=== PATIENT | female | born 1975 | race Caucasian/White ===

== ENCOUNTER 2018-01-28 11:14 | Emergency (ER) | payer OTHER ==
[2018-01-28 11:19] VITALS: BP 146/82; PULSE 75; RESP 18; TEMP 98.5
--- NOTE | 2018-01-28 11:37 | ED ---
General Adult HPI - General Chief complaint: Extremity Injury, Upper Stated complaint: Hand Swelling Time Seen by Provider: 01/28/18 11:25 Source: patient, RN notes reviewed Mode of arrival: ambulatory Limitations: no limitations - History of Present Illness Initial comments: Patient is a pleasant 42-year-old female presenting to the emergency Department with right hand discomfort and swelling. Patient did have some mild symptoms last night however symptoms are much worse this morning. Discomfort increases with movement. Discomfort is mostly over the metacarpal for the ring finger. Patient has noticed swelling. No discoloration. Discomfort hurts with both flexion and extension of the fingers: 3rd and fourth of mostly the fourth. No fever. No direct trauma. Patient does admit to doing some yard work yesterday. No history of similar symptoms previous. No other area of involvement. - Related Data Home Medications Medication Instructions Recorded Confirmed Lisinopril [Zestril] 10 mg PO DAILY 01/09/14 01/09/14 Metoprolol Succinate [Toprol XL] 25 mg PO DAILY 01/09/14 01/09/14 Previous Rx's Medication Instructions Recorded Ibuprofen [Motrin] 600 mg PO Q6HR PRN #20 tab 02/24/17 Ibuprofen [Motrin] 600 mg PO Q6HR PRN #20 tab 01/28/18 predniSONE 20 mg PO BID #8 tab 01/28/18 Allergies Allergy/AdvReac Type Severity Reaction Status Date / Time No Known Allergies Allergy Verified 01/28/18 11:19 Review of Systems ROS Statement: Those systems with pertinent positive or pertinent negative responses have been documented in the HPI. ROS Other: All systems not noted in ROS Statement are negative. Constitutional: Denies: fever Eyes: Denies: eye pain ENT: Denies: ear pain Respiratory: Denies: cough Cardiovascular: Denies: chest pain Endocrine: Denies: fatigue Gastrointestinal: Denies: abdominal pain Genitourinary: Denies: dysuria Musculoskeletal: Reports: as per HPI. Denies: back pain Skin: Denies: rash Neurological: Denies: weakness Past Medical History Past Medical History: Hypertension History of Any Multi-Drug Resistant Organisms: None Reported Past Surgical History: Cholecystectomy, Tubal Ligation Additional Past Surgical History / Comment(s): cleft lip Past Psychological History: No Psychological Hx Reported Smoking Status: Current every day smoker Past Alcohol Use History: Occasional Past Drug Use History: None Reported General Exam Limitations: no limitations General appearance: alert, in no apparent distress Head exam: Present: atraumatic Neck exam: Present: normal inspection. Absent: tenderness Respiratory exam: Present: normal lung sounds bilaterally Cardiovascular Exam: Present: regular rate, normal rhythm Expanded Peripheral pulses: 2+: Radial (R) GI/Abdominal exam: Present: soft. Absent: tenderness Extremities exam: Present: other (Right dorsal hand with tenderness and swelling of the fourth metacarpal region and minimally of the third metacarpal region. Full range of motion with discomfort. Cap refill less than 2 seconds.) Neurological exam: Present: alert. Absent: motor sensory deficit Psychiatric exam: Present: normal affect, normal mood Skin exam: Present: normal color. Absent: rash Course Vital Signs 01/28/18 11:15 Temperature 98.5 F Pulse Rate 75 Respiratory 18 Rate Blood Pressure 146/82 O2 Sat by Pulse 100 Oximetry Medical Decision Making - Radiology Data Interpreted by me: X-ray of the right hand shows no acute process Disposition Clinical Impression: Sprain of hand Disposition: HOME SELF-CARE Condition: Stable Instructions: Hand Sprain (ED) Additional Instructions: Please follow-up with primary care physician or orthopedics this week. Continue Motrin. Return for fever, increased pain, increased swelling, redness , worsening symptoms or other concerns. Prescriptions: Ibuprofen [Motrin] 600 mg PO Q6HR PRN #20 tab PRN Reason: Pain predniSONE 20 mg PO BID #8 tab Is patient prescribed a controlled substance at d/c from ED?: No Referrals: Terrence Ledesma MD [Primary Care Provider] - 1-2 days Stanford Macias MD [Medical Doctor] - 1-2 days Time of Disposition: 11:56
[2018-01-28] MEDS ORDERED: IBUPROFEN 600 MG STARTER PACK 4 TAB BTL PO STA (11:54)
--- NOTE | 2018-01-28 11:58 | XR ---
EXAMINATION TYPE: XR hand complete RT , 3 VIEWS DATE OF EXAM ORDERED: 01/28/2018 HISTORY: Pain. COMPARISON: None. FINDINGS: No fracture, dislocation or other bony lesion is identified. IMPRESSION: NO ACUTE OSSEOUS LESION.
== END 2018-01-28 12:03 | disposition home or self-care (01) ==
LOC: EC 11:14
DX: S63.91XA Sprain of unspecified part of right wrist and hand, initial encounter (principal); I10 Essential (primary) hypertension; F17.200 Nicotine dependence, unspecified, uncomplicated; Z79.899 Other long term (current) drug therapy; X50.9XXA Other and unspecified overexertion or strenuous movements or postures, initial encounter
CPT/HCPCS: 99283

== ENCOUNTER 2019-06-07 10:57 | Emergency (ER) | payer BC, OTHER ==
[2019-06-07] MEDS ORDERED: SODIUM CHLORIDE 0.9% 1,000 ML IV STA (11:14)
[2019-06-07] MEDS ORDERED: ASPIRIN 81 MG PO STA (11:14)
--- NOTE | 2019-06-07 11:24 | ED ---
Chest Pain HPI - General Chief Complaint: Chest Pain Stated Complaint: Syncope Time Seen by Provider: 06/07/19 11:01 Source: EMS Mode of arrival: EMS Limitations: no limitations - History of Present Illness Initial Comments: Patient is a 44-year-old female presenting to the emergency department via EMS after having an episode of chest tightness at work today. Patient states she works at [employer] and was moving and lifting 40-50 pound boxes which she does on a daily basis when she started having chest pressure, pain and become short of breath as well as diaphoretic. Patient states the episode lasted a couple minutes and they called EMS. Patient states she is feeling slightly improvement now but is still feeling tightness. She no longer feels short of breath. She denies nausea, vomiting, fever. She states she has not been sick. She felt normal this morning and did have a breakfast. She does take hypertension medications, no other pertinent past medical history. She denies recent travel. She has no other complaints at this time. Patient received 325 mg aspirin as well as 1 nitro in the ambulance prior to arrival. Upon arrival to the ER her vitals are normal. - Related Data Home Medications Medication Instructions Recorded Confirmed Lisinopril-Hctz 20-12.5 mg 1 tab PO DAILY 06/07/19 06/07/19 [Zestoretic 20-12.5] Metoprolol Succinate [Toprol XL] 50 mg PO DAILY 06/07/19 06/07/19 Pamprin 2 tab PO DAILY PRN 06/07/19 06/07/19 Allergies Allergy/AdvReac Type Severity Reaction Status Date / Time No Known Allergies Allergy Verified 06/07/19 11:41 Review of Systems ROS Statement: Those systems with pertinent positive or pertinent negative responses have been documented in the HPI. ROS Other: All systems not noted in ROS Statement are negative. EKG Findings - EKG Comments: EKG Findings:: Ventricular rate 59, FL interval 194, QTC 427. Sinus bradycardia with sinus arrhythmia. No acute ST segment changes. Past Medical History Past Medical History: Hypertension History of Any Multi-Drug Resistant Organisms: None Reported Past Surgical History: Cholecystectomy, Tubal Ligation Additional Past Surgical History / Comment(s): cleft lip Past Psychological History: No Psychological Hx Reported Smoking Status: Never smoker Past Alcohol Use History: Occasional Past Drug Use History: None Reported General Exam - General Exam Comments Initial Comments: GENERAL: Well-appearing, well-nourished and in no acute distress. HEAD: Atraumatic, normocephalic. EYES: Pupils equal round and reactive to light, extraocular movements intact, sclera anicteric, conjunctiva are normal. ENT: TMs normal, nares patent, oropharynx clear without exudates. Moist mucous membranes. NECK: Normal range of motion, supple without lymphadenopathy or JVD. LUNGS: Breath sounds clear to auscultation bilaterally and equal. No wheezes rales or rhonchi. HEART: Regular rate and rhythm without murmurs, rubs or gallops. Mild tenderness with palpation of the upper right chest and upper left chest. ABDOMEN: Soft, nontender, normoactive bowel sounds. No guarding, no rebound. No masses appreciated. : Deferred EXTREMITIES: Normal range of motion, no pitting or edema. No clubbing or cyanosis. NEUROLOGICAL: Cranial nerves II through XII grossly intact. Normal speech, normal gait. PSYCH: Normal mood, normal affect. SKIN: Warm, Dry, normal turgor, no rashes or lesions noted. Limitations: no limitations Course Vital Signs 06/07/19 06/07/19 06/07/19 10:58 11:02 11:19 Temperature 97.5 F L Pulse Rate 67 61 Pulse Rate [ 67 Communication Spec ] Respiratory 18 16 Rate Blood Pressure 141/83 141/83 O2 Sat by Pulse 97 99 Oximetry 06/07/19 06/07/19 06/07/19 11:30 12:00 13:13 Temperature 98.0 F Pulse Rate 58 L 58 L 67 Pulse Rate [ Communication Spec ] Respiratory 17 15 18 Rate Blood Pressure 118/86 124/73 141/87 O2 Sat by Pulse 97 98 98 Oximetry Chest Pain [facility] Patient is a 44-year-old female presenting with chest pain after moving large boxes at work. She was diaphoretic and short of breath as well. Her vitals upon arrival are stable. She did receive aspirin and 1 nitro prior to arrival and EMS. EKG showed no ischemic process. Lab work shows no acute abnormal ities, troponin was normal. UA is normal. Chest x-ray shows no acute abnormalities. Discussed these findings with the patient. We discussed that given her acute onset of chest pain with activity and recommended being admitted for observation and cardiac consult as well as serial troponins. Patient did not want to be admitted and wants to leave. I discussed the consequences of leaving AMA including . Patient still wanting to leave. AMA form was signed. Case discussed with Dr. Bond. Disposition Clinical Impression: Chest pain Disposition: Left Against Medical Advice Condition: Stable Additional Instructions: Please return to the Emergency Department if symptoms worsen or any other concerns. Strongly advised to follow-up with PCP [facility]. Is patient prescribed a controlled substance at d/c from ED?: No Referrals: Terrence Ledesma MD [Primary Care Provider] - 1-2 days
[2019-06-07 11:27] LABS: Basophils # (A) 0.1 k/uL (0-0.2); Basophils % (A) 1 %; Eosinophils # (A) 0.2 k/uL (0-0.7); Eosinophils % (A) 3 %; HCT 39.6 % (34.0-46.0); HGB 13.4 gm/dL (11.4-16.0); Lymphocytes # (A) 2.5 k/uL (1.0-4.8); Lymphocytes % (A) 37 %; MCH 28.3 pg (25.0-35.0); MCHC 33.9 g/dL (31.0-37.0); MCV 83.7 fL (80.0-100.0); Mean Platelet Volume 9.5; Monocytes # (A) 0.3 k/uL (0-1.0); Monocytes % (A) 4 %; Neutrophils # (A) 3.7 k/uL (1.3-7.7); Neutrophils % (A) 54 %; Platelet Count 237 k/uL (150-450); RBC 4.73 m/uL (3.80-5.40); RDW 12.8 % (11.5-15.5); WBC 6.7 k/uL (3.8-10.6)
[2019-06-07 11:38] LABS: ALT 17 U/L (4-34); AST 21 U/L (14-36); African American GFR (CKD) >90 (>60 ml/min/1.73 sqM); Albumin 3.6 g/dL (3.5-5.0); Alkaline Phosphatase 65 U/L (38-126); Anion Gap 8 mmol/L; Blood Urea Nitrogen 15 mg/dL (7-17); Calcium 8.9 mg/dL (8.4-10.2); Carbon Dioxide 24 mmol/L (22-30); Chloride 106 mmol/L (98-107); Glucose 88 mg/dL (74-99); INR 0.9 (<1.2); Magnesium 1.8 mg/dL (1.6-2.3); Non-African American GFR(CKD) 89 (>60 ml/min/1.73 sqM); Partial Thromboplastin Time 23.3 sec (22.0-30.0); Potassium 3.7 mmol/L (3.5-5.1); Prothrombin Time 9.7 sec (9.0-12.0); Sodium 138 mmol/L (137-145); Total Bilirubin 0.4 mg/dL (0.2-1.3); Total Protein 6.6 g/dL (6.3-8.2)
--- NOTE | 2019-06-07 11:44 | XR ---
EXAMINATION TYPE: XR chest 2V DATE OF EXAM: 06/07/2019 COMPARISON: Prior chest x-ray 07/17/2011 HISTORY: Chest pain TECHNIQUE: Frontal and lateral views of the chest are obtained. FINDINGS: There are overlying cardiac leads. Patient is rotated. Surgical clips present right upper q uadrant. There is no focal air space opacity, pleural effusion, or pneumothorax seen. The cardiac si lhouette size is within normal limits. The osseous structures are intact. IMPRESSION: No acute cardiopulmonary process.
[2019-06-07 12:19] LABS: Appearance,Urine Clear (Clear); Bacteria,Urine Rare /hpf; Bilirubin,Urine Negative (Negative); Blood,Urine Moderate (Negative); Color,Urine Light Yellow; Glucose,Urine (UA) Negative (Negative); Ketones,Urine Negative (Negative); Leukocyte Esterase,Urine Negative (Negative); Mucus,Urine Rare /hpf; Nitrite,Urine Negative (Negative); Protein,Urine Negative (Negative); RBC,Urine 36 /hpf (0-5); Specific Gravity,Urine 1.017 (1.001-1.035); Squamous Epithelial Cell,Urine 1 /hpf (0-4); Urobilinogen,Urine <2.0 mg/dL (<2.0); WBC,Urine 4 /hpf (0-5)
[2019-06-07 13:14] VITALS: BP 141/87; PULSE 67; RESP 18; TEMP 98
== END 2019-06-07 13:13 | disposition left against medical advice (07) ==
LOC: EC 10:57
DX: R07.89 Other chest pain (principal); R61 Generalized hyperhidrosis; R06.02 Shortness of breath; I10 Essential (primary) hypertension; Z79.899 Other long term (current) drug therapy; Z53.20 Procedure and treatment not carried out because of patient's decision for unspecified reasons
CPT/HCPCS: 36415; 71046; 80053; 81001; 83735; 84484; 85025; 85610; 85730; 93005; 96360; 99285

== ENCOUNTER 2021-04-22 13:54 | Emergency (ER) | payer BC, OTHER ==
[2021-04-22 14:55] VITALS: RESP 18; TEMP 98
[2021-04-22] MEDS ORDERED: KETOROLAC 15 MG/ML 1 ML VIAL IM STA (16:17)
[2021-04-22] MEDS ORDERED: ACETAMINOPHEN TAB 500 MG TAB PO STA (16:17)
[2021-04-22] MEDS ORDERED: LIDOCAINE 5% PATCH TOPICAL STA (18:26)
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
[2021-04-22 18:46] VITALS: BP 169/94; PULSE 81
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
== END 2021-04-22 19:13 | disposition home or self-care (01) ==
LOC: EC 13:54
DX: S39.012A Strain of muscle, fascia and tendon of lower back, initial encounter (principal); I10 Essential (primary) hypertension; Z90.49 Acquired absence of other specified parts of digestive tract; Z98.51 Tubal ligation status; V43.52XA Car driver injured in collision with other type car in traffic accident, initial encounter; Y92.410 Unspecified street and highway as the place of occurrence of the external cause
CPT/HCPCS: 99284; 96372; 72170; 71046; 72128; 72125; 72131; J1885

== ENCOUNTER 2023-09-15 19:44 | Emergency (ER) | payer BC ==
[2023-09-15 19:56] VITALS: RESP 18
--- NOTE | 2023-09-15 21:38 | ED ---
Extremity Problem HPI - General Chief complaint: Extremity Problem,Nontraumatic Stated complaint: R Ankle Injury Time Seen by Provider: 09/15/23 20:52 Source: patient, RN notes reviewed, old records reviewed Mode of arrival: wheelchair Limitations: no limitations - History of Present Illness Initial comments: This is a 48-year-old female to the ER for evaluation of severe ankle pain and ankle pain with found ankle sprain. No significant traumatic injuries noted otherwise. Patient is having severe pain and swelling to the ankle difficult to bear weight but is able to bear weight MD Complaint: extremity pain, extremity swelling, joint swelling, joint pain -: hour(s) Location: right, lower extremity History of Same: Yes -: Yes arthralgia Radiation: proximal Severity scale (1-10): 6 Quality: stabbing, aching Consistency: constant Improves with: nothing Worsens with: weight bearing, walking Associated Symptoms: denies other symptoms - Related Data Home Medications Medication Instructions Recorded Confirmed Lisinopril-Hctz 20-12.5 mg 1 tab PO DAILY 06/07/19 06/07/19 [Zestoretic 20-12.5] Metoprolol Succinate [Toprol XL] 50 mg PO DAILY 06/07/19 06/07/19 Pamprin 2 tab PO DAILY PRN 06/07/19 06/07/19 Previous Rx's Medication Instructions Recorded Lidocaine 5% Patch [Lidoderm 5% 1 patch TOPICAL DAILY PRN 7 Days 04/22/21 Patch] #7 patch methocarbamoL [Robaxin-750] 750 mg PO BID 7 Days #14 tablet 04/22/21 Allergies Allergy/AdvReac Type Severity Reaction Status Date / Time No Known Allergies Allergy Verified 04/22/21 14:55 Review of Systems ROS Statement: Those systems with pertinent positive or pertinent negative responses have been documented in the HPI. ROS Other: All systems not noted in ROS Statement are negative. Past Medical History Past Medical History: Hypertension History of Any Multi-Drug Resistant Organisms: None Reported Past Surgical History: Cholecystectomy, Tubal Ligation Additional Past Surgical History / Comment(s): cleft lip Past Psychological History: No Psychological Hx Reported Smoking Status: Never smoker Past Alcohol Use History: Occasional Past Drug Use History: None Reported General Exam Limitations: no limitations General appearance: alert, in no apparent distress Head exam: Present: atraumatic, normocephalic, normal inspection Eye exam: Present: normal appearance, PERRL, EOMI. Absent: scleral icterus, conjunctival injection, periorbital swelling ENT exam: Present: normal exam, mucous membranes moist Neck exam: Present: normal inspection. Absent: tenderness, meningismus, lymphadenopathy Respiratory exam: Present: normal lung sounds bilaterally. Absent: respiratory distress, wheezes, rales, rhonchi, stridor Cardiovascular Exam: Present: regular rate, normal rhythm, normal heart sounds. Absent: systolic murmur, diastolic murmur, rubs, gallop, clicks GI/Abdominal exam: Present: soft, normal bowel sounds. Absent: distended, tenderness, guarding, rebound, rigid Extremities exam: Present: normal inspection, full ROM, normal capillary refill. Absent: tenderness, pedal edema, joint swelling, calf tenderness Back exam: Present: normal inspection Neurological exam: Present: alert, oriented X3, CN II-XII intact Psychiatric exam: Present: normal affect, normal mood Skin exam: Present: warm, dry, intact, normal color. Absent: rash Course Vital Signs 09/15/23 09/15/23 19:46 21:55 Temperature 98.4 F 98.1 F Pulse Rate 78 75 Respiratory 18 18 Rate Blood Pressure 152/98 132/80 O2 Sat by Pulse 97 98 Oximetry - Reevaluation(s) Reevaluation #1: Medical records reviewed Reevaluation #2: Patient symptoms improved Reevaluation #3: Patient informed of results questions answered Reevaluation #4: Was pt. sent in by a medical professional or institution (, PA, MORNING SHOW PRODUCER, urgent care, hospital, or correction...) When possible be specific @ -no Did you speak to anyone other than the patient for history (EMS, parent, family, police, friend...)? What history was obtained from this source @ -no Did you review nursing and triage notes (agree or disagree)? Why? @ -agree Are old charts reviewed (outside hosp., previous admission, EMS record, old EKG, old radiological studies, urgent care reports/EKG's, correction records)? Report findings @ -yes Differential Diagnosis (chest pain, altered mental status, abdominal pain women, abdominal pain men, vaginal bleeding, weakness, fever, dyspnea, syncope, headache, dizziness, GI bleed, back pain, seizure, CVA, palpatations, mental health, musculoskeletal)? @ -prior EKG interpreted by me (3pts min.). @ -no X-rays interpreted by me (1pt min.). @ -yes negative for acute disease CT interpreted by me (1pt min.). @ -no U/S interpreted by me (1pt. min.). @ -no What testing was considered but not performed or refused? (CT, X-rays, U/S, labs)? Why? @ -none What meds were considered but not given or refused? Why? @ -none Did you discuss the management of the patient with other professionals (professionals i.e. , PA, MORNING SHOW PRODUCER, lab, RT, psych nurse, social work supervisor, assembler leather goods, teacher, credit administration officer, case management manager)? Give summary @ -no Was smoking cessation discussed for >3mins.? @ -no Were there social determinants of health that impacted care today? How? (Homelessness, low income, unemployed, alcoholism, drug addiction, transportation, low edu. Level, literacy, decrease access to med. care, [place] [facility], rehab)? @ -none Was there de-escalation of care discussed even if they declined (Discuss DNR or withdrawal of care, Hospice)? DNR status @ -no What co-morbidities impacted this encounter? (DM, HTN, Smoking, COPD, CAD, Cancer, CVA, ARF, Chemo, Hep., AIDS, mental health diagnosis, sleep apnea, morbid obesity)? @ -none Was patient admitted / discharged? Hospital course, mention meds given and route, prescriptions, significant lab abnormalities, going to OR and other pertinent info. @ - 48 female to the ER for evaluation of right ankle pain positive for right ankle sprain no fracture patient will be discharged home Discharge Was critical care preformed (if so, how long)? @ -no Undiagnosed new problem with uncertain prognosis? @ -no Drug Therapy requiring intensive monitoring for toxicity (Heparin, Nitro, Insulin, Cardizem)? @ -no Were any procedures done? @ -no Diagnosis/symptom? @ -Ankle Sprain Acute, or Chronic, or Acute on Chronic? @ -Acute Uncomplicated (without systemic symptoms) or Complicated (systemic symptoms)? @ -Complicated Side effects of treatment? @ -no Exacerbation, Progression, or Severe Exacerbation? @ -exacerbation Poses a threat to life or bodily function? How? (Chest pain, [place], [place], pneumonia, PE, COPD, DKA, ARF, appy, cholecystitis, CVA, Diverticulitis, Homicidal, Suicidal, threat to staff... and all critical care pts) @ -no Medical Decision Making - Medical Decision Making 48 female to the ER for evaluation of right ankle pain positive for right ankle sprain no fracture patient will be discharged home - Radiology Data Radiology results: report reviewed (X-ray ankle is negative for traumatic injury), image reviewed Disposition Clinical Impression: Right ankle sprain Disposition: HOME SELF-CARE Condition: Good Instructions (If sedation given, give patient instructions): Ankle Sprain (ED) Is patient prescribed a controlled substance at d/c from ED?: No Referrals: Terrence Ledesma [Primary Care Provider] - 1-2 days Time of Disposition: 21:30
[2023-09-15 22:27] VITALS: BP 132/80; PULSE 75; TEMP 98.1
--- NOTE | 2023-09-15 23:24 | XR ---
EXAMINATION TYPE: XR ankle complete RT DATE OF EXAM: 09/15/2023 COMPARISON: 02/24/2017 HISTORY: Pain TECHNIQUE: Three-view right ankle FINDINGS: Ankle mortise is intact. Soft tissues are normal. No acute fracture or dislocation is evide nt. Plantar and Achilles tendon calcaneal heel spurs are present. There may be some interval development of cysts at the inferior lateral malleolus not present previou sly. Follow-up is recommended. Three-phase bone scan can be performed if there is clinical concern fo r osteomyelitis. Follow up exams can be performed 7-10 days from acute trauma for continued pain IMPRESSION: 1. No acute fractures evident. 2. Interval development of lucencies at the inferior lateral malleolus. Correlate for degenerative ch steve and infection. Follow-up is recommended.
== END 2023-09-15 22:03 | disposition home or self-care (01) ==
LOC: EC 19:44
DX: S93.401A Sprain of unspecified ligament of right ankle, initial encounter (principal); X58.XXXA Exposure to other specified factors, initial encounter
CPT/HCPCS: 99283

== ENCOUNTER 2023-12-22 12:58 | Emergency (ER) | payer BC ==
[2023-12-22 13:03] VITALS: PULSE 64
--- NOTE | 2023-12-22 13:22 | ED ---
Extremity Problem HPI - General Chief complaint: Extremity Problem,Nontraumatic Stated complaint: Swollen left leg Time Seen by Provider: 12/22/23 13:19 Source: patient, RN notes reviewed Mode of arrival: ambulatory Limitations: no limitations - History of Present Illness Initial comments: 48-year-old female presenting for left leg swelling x 1 day. Patient states she was at work yesterday when she began to feel a pain in her left calf radiating into her left hamstring. Pain is worse with weightbearing and relieved with rest and elevation. Patient states she is on her feet all day as she works at [employer]. States when she got home from work last night she felt as though her entire left leg was swollen. Patient is now having left popliteal pain and pain with knee flexion. Denies known trauma or injury. Denies history of blood clot. Denies recent travel or surgeries. Denies hormone replacement therapy. Denies blood thinners. - Related Data Home Medications Medication Instructions Recorded Confirmed Lisinopril-Hctz 20-12.5 mg 1 tab PO DAILY 06/07/19 12/22/23 [Zestoretic 20-12.5] Metoprolol Succinate [Toprol XL] 50 mg PO DAILY 06/07/19 12/22/23 Atorvastatin [Lipitor] 20 mg PO DAILY 12/22/23 12/22/23 Escitalopram [Lexapro] 10 mg PO DAILY 12/22/23 12/22/23 Allergies Allergy/AdvReac Type Severity Reaction Status Date / Time No Known Allergies Allergy Verified 12/22/23 14:35 Review of Systems ROS Statement: Those systems with pertinent positive or pertinent negative responses have been documented in the HPI. ROS Other: All systems not noted in ROS Statement are negative. Past Medical History Past Medical History: Hypertension History of Any Multi-Drug Resistant Organisms: None Reported Past Surgical History: Cholecystectomy, Tubal Ligation Additional Past Surgical History / Comment(s): cleft lip Past Psychological History: No Psychological Hx Reported Smoking Status: Never smoker Past Alcohol Use History: Occasional Past Drug Use History: None Reported General Exam Limitations: no limitations General appearance: alert, in no apparent distress Head exam: Present: atraumatic, normocephalic, normal inspection Left Upper Leg exam: Present: normal inspection, full ROM. Absent: tenderness, swelling Knee exam: Present: normal inspection (No erythema or edema bilaterally. Full sensation and DP pulses bilaterally), full ROM (Limited knee flexion due to pain.), tenderness (Newness in left popliteal space). Absent: swelling Lower Leg exam: Present: normal inspection, full ROM. Absent: tenderness, swelling, erythema, palpable cord, Homans' sign Ankle exam: Present: normal inspection, full ROM. Absent: tenderness, swelling Foot/Toe exam: Present: normal inspection, full ROM. Absent: tenderness, swelling Neurovascular tendon exam: Present: no vascular compromise. Absent: pulse deficit, abnormal cap refill, sensory deficit Neurological exam: Present: alert, oriented X3 Psychiatric exam: Present: normal affect, normal mood Course Vital Signs 12/22/23 12:59 Temperature 97.8 F Pulse Rate 64 Respiratory 18 Rate Blood Pressure 157/96 O2 Sat by Pulse 95 Oximetry Medical Decision Making - Medical Decision Making Was pt. sent in by a medical professional or institution (, PA, TALENT BUYER, urgent care, hospital, or [place] [facility]...) When possible be specific @ -No Did you speak to anyone other than the patient for history (EMS, parent, family, police, friend...)? What history was obtained from this source @ -No Did you review nursing and triage notes (agree or disagree)? Why? @ -I reviewed and agree with nursing and triage notes Were old charts reviewed (outside hosp., previous admission, EMS record, old EKG, old radiological studies, urgent care reports/EKG's, [place] [facility] records)? Report findings @ -No old charts were reviewed Differential Diagnosis (chest pain, altered mental status, abdominal pain women, abdominal pain men, vaginal bleeding, weakness, fever, dyspnea, syncope, headache, dizziness, GI bleed, back pain, seizure, CVA, palpatations, mental health, musculoskeletal)? @ -Differential Musculoskeletal Muscular strain, contusion, ligament sprain, fracture, arthritis, septic arthritis, bursitis, cellulitis, muscle spasm, nerve compression, DVT, arterial occlusion, herpes zoster, electrolyte abnormality, tumor.... This is not meant to be in all inclusive list EKG interpreted by me (3pts min.). @ -None X-rays interpreted by me (1pt min.). @ -Left knee x-ray reveals no acute osseous abnormality CT interpreted by me (1pt min.). @ -None done U/S interpreted by me (1pt. min.). @ -Ultrasound of left lower extremity negative for DVT What testing was considered but not performed or refused? (CT, X-rays, U/S, labs)? Why? @ -None What meds were considered but not given or refused? Why? @ -None Did you discuss the management of the patient with other professionals (professionals i.e. , PA, TALENT BUYER, lab, RT, psych nurse, manager social work, assistant plant manager, teacher, electorate officer, case technician)? Give summary @ -No Was smoking cessation discussed for >3mins.? @ -No Was critical care preformed (if so, how long)? @ -No Were there social determinants of health that impacted care today? How? (Homelessness, low income, unemployed, alcoholism, drug addiction, transportation, low edu. Level, literacy, decrease access to med. care, prison, rehab)? @ -No Was there de-escalation of care discussed even if they declined (Discuss DNR or withdrawal of care, Hospice)? DNR status @ -No What co-morbidities impacted this encounter? (DM, HTN, Smoking, COPD, CAD, Cancer, CVA, ARF, Chemo, Hep., AIDS, mental health diagnosis, sleep apnea, morbid obesity)? @ -None Was patient admitted / discharged? Hospital course, mention meds given and route, prescriptions, significant lab abnormalities, going to OR and other pertinent info. @ -Patient was discharged. Patient was seen and evaluated for left leg swelling x 1 day with popliteal pain. Denies injury or trauma. No erythema or edema upon physical examination. Neurovascularly intact, strong DP pulses bilaterally. Ultrasound is negative for DVT. X-ray of left knee is negative for acute process. Discussed negative findings with patient. Discussed diagnosis of left knee strain. Supportive care discussed. Return precautions discussed and patient is agreeable. Case was discussed with my ED attending Dr. Garcia. Patient discharged in stable condition Undiagnosed new problem with uncertain prognosis? @ -No Drug Therapy requiring intensive monitoring for toxicity (Heparin, Nitro, Insulin, Cardizem)? @ -No Were any procedures done? @ -No Diagnosis/symptom? @ -Left knee strain Acute, or Chronic, or Acute on Chronic? @ -Acute Uncomplicated (without systemic symptoms) or Complicated (systemic symptoms)? @ -Uncomplicated Side effects of treatment? @ -No Exacerbation, Progression, or Severe Exacerbation? @ -No Poses a threat to life or bodily function? How? (Chest pain, [place], [place], pneumonia, PE, COPD, DKA, ARF, appy, cholecystitis, CVA, Diverticulitis, Homicidal, Suicidal, threat to staff... and all critical care pts) @ -No Disposition Clinical Impression: Strain of left knee Disposition: HOME SELF-CARE Condition: Stable Instructions (If sedation given, give patient instructions): Muscle Strain (ED) Additional Instructions: Use elevation and ice to affected area. Take ibuprofen or Tylenol as needed for pain. Please return to the Emergency Department if symptoms worsen or any other concerns. Is patient prescribed a controlled substance at d/c from ED?: No Referrals: Terrence Ledesma [Primary Care Provider] - 1-2 days Time of Disposition: 14:50
--- NOTE | 2023-12-22 13:41 | XR ---
EXAMINATION TYPE: XR knee complete LT DATE OF EXAM: 12/22/2023 1:33 PM CLINICAL INDICATION: Female, 48 years old with history of left knee pain; COMPARISON: None. TECHNIQUE: XR knee complete LT; examined in Frontal, lateral and oblique projections. FINDINGS: No evidence of any acute osseous pathology, soft tissue swelling, or joint effusion is no mandeep. Tricompartmental osteophyte formation involving the femoral condyles, tibial plateau and patella . Mild joint space narrowing. A fabella is present. IMPRESSION: 1. No acute osseous pathology. 2. Mild tricompartmental osteoarthritic changes.
--- NOTE | 2023-12-22 14:10 | US ---
EXAMINATION TYPE: US venous doppler duplex LE LT DATE OF EXAM: 12/22/2023 1:19 PM COMPARISON: NONE CLINICAL INDICATION: Female, 48 years old with history of left popliteal pain; lt knee pain SIDE PERFORMED: Left TECHNIQUE: The lower extremity deep venous system is examined utilizing real time linear array sonog deirdre with graded compression, doppler sonography and color-flow sonography. VESSELS IMAGED: Common Femoral Vein Deep Femoral Vein Greater Saphenous Vein * Femoral Vein Popliteal Vein Small Saphenous Vein * Proximal Calf Veins (* superficial vessels) Left Leg: Negative for DVT IMPRESSION: Grayscale, color doppler, spectral doppler imaging performed of the deep veins of the lo wer extremities. There is normal flow, compressibility, vascular waveforms.
[2023-12-22 15:14] VITALS: BP 147/85; RESP 16; TEMP 98
== END 2023-12-22 15:14 | disposition home or self-care (01) ==
LOC: EC 12:58
DX: R22.42 Localized swelling, mass and lump, left lower limb
CPT/HCPCS: 99283

== ENCOUNTER 2024-06-17 09:01 | Emergency (ER) | payer BC ==
[2024-06-17] MEDS: methylPREDNISolone SOD SUCCI 125 MG/2 ML VIAL IV STA (10:12)
[2024-06-17] MEDS: SODIUM CHLORIDE 0.9% 1,000 ML IV STA (10:12)
[2024-06-17 10:27] LABS: Basophils % (A) 1 %; Eosinophils # (A) 0.1 k/uL (0-0.7); Eosinophils % (A) 1 %; HCT 44.9 % (34.0-46.0); HGB 14.6 gm/dL (11.4-16.0); Lymphocytes # (A) 2.4 k/uL (1.0-4.8); Lymphocytes % (A) 48 %; MCH 27.4 pg (25.0-35.0); MCHC 32.4 g/dL (31.0-37.0); MCV 84.6 fL (80.0-100.0); Mean Platelet Volume 9.3; Monocytes # (A) 0.2 k/uL (0-1.0); Monocytes % (A) 5 %; Neutrophils # (A) 2.2 k/uL (1.3-7.7); Neutrophils % (A) 43 %; Platelet Count 189 k/uL (150-450); RBC 5.31 m/uL (3.80-5.40); RDW 13.3 % (11.5-15.5)
[2024-06-17 10:32] LABS: Influenza A Detected (Not Detectd); Influenza B Not Detected (Not Detectd); RSV Not Detected (Not Detectd)
--- NOTE | 2024-06-17 10:56 | XR ---
EXAMINATION TYPE: XR chest 2V DATE OF EXAM: 06/17/2024 10:52 AM COMPARISON: Chest x-ray April 22, 2021 CLINICAL INDICATION: Female, 49 years old with history of difficulty breathing, TECHNIQUE: Frontal and lateral views of the chest are obtained. FINDINGS: There is no focal air space opacity, pleural effusion, or pneumothorax seen. The cardiac silhouette size is stable and upper limits of normal. The osseous structures are intact. IMPRESSION: No acute cardiopulmonary process. [facility], , 06/17/2024 10:54 AM
[2024-06-17 10:58] LABS: ALT 28 U/L (4-34); African American GFR (CKD) >90 (>60 ml/min/1.73 sqM); Anion Gap 7 mmol/L; Blood Urea Nitrogen 14 mg/dL (7-17); Calcium 8.9 mg/dL (8.4-10.2); Carbon Dioxide 28 mmol/L (22-30); Chloride 101 mmol/L (98-107); Glucose 89 mg/dL (74-99); Non-African American GFR(CKD) >90 (>60 ml/min/1.73 sqM); Sodium 136 mmol/L (137-145); Total Bilirubin 0.7 mg/dL (0.2-1.3); Total Protein 6.8 g/dL (6.3-8.2)
[2024-06-17 11:04] LABS: Potassium 4.2 mmol/L (3.5-5.1)
[2024-06-17 11:05] LABS: AST 30 U/L (14-36); Alkaline Phosphatase 57 U/L (38-126); Magnesium 2.1 mg/dL (1.6-2.3)
[2024-06-17 11:26] VITALS: RESP 17
[2024-06-17] MEDS: IPRATROPIUM-ALBUTEROL 3 ML NEB INHALATION STA (11:28)
--- NOTE | 2024-06-17 12:20 | ED ---
General Adult HPI - General Chief complaint: Shortness of Breath Stated complaint: SOB Time Seen by Provider: 06/17/24 09:15 Source: patient, RN notes reviewed, old records reviewed Mode of arrival: ambulatory Limitations: no limitations - History of Present Illness Initial comments: Patient is a 49-year-old female presents emergency department complaining of difficulty catching breath with wheezing. Has a history of tobacco use. Only past medical history is hypertension. Endorses sick contacts at work. 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 Denies abdominal pain, nausea, vomiting, diarrhea. Presents for further evaluation. Currently having 1 week of symptoms. - Related Data Home Medications Medication Instructions Recorded Confirmed Lisinopril-Hctz 20-12.5 mg 1 tab PO DAILY 06/07/19 06/17/24 [Zestoretic 20-12.5] Metoprolol Succinate [Toprol XL] 50 mg PO DAILY 06/07/19 06/17/24 Atorvastatin [Lipitor] 20 mg PO DAILY 12/22/23 06/17/24 Escitalopram [Lexapro] 10 mg PO DAILY 12/22/23 06/17/24 Previous Rx's Medication Instructions Recorded Albuterol Inhaler [Ventolin Hfa 1 - 2 puff INHALATION Q6H PRN #1 06/17/24 Inhaler] each predniSONE [Deltasone] 40 mg PO DAILY 5 Days #10 tab 06/17/24 Allergies Allergy/AdvReac Type Severity Reaction Status Date / Time No Known Allergies Allergy Verified 06/17/24 11:08 Review of Systems ROS Statement: Those systems with pertinent positive or pertinent negative responses have been documented in the HPI. Review of Systems: CONST: Denies fever EYES: Denies blurry vision ENT: Denies nasal congestion C/V: Denies Chest pain RESP: Endorses shortness of breath GI: Denies abdominal pain : Denies dysuria SKIN: Denies rash. MSK: Denies joint pain. NEURO: Denies headache ROS Other: All systems not noted in ROS Statement are negative. Past Medical History Past Medical History: Hypertension History of Any Multi-Drug Resistant Organisms: None Reported Past Surgical History: Cholecystectomy, Tubal Ligation Additional Past Surgical History / Comment(s): cleft lip Past Psychological History: No Psychological Hx Reported Smoking Status: Never smoker Past Alcohol Use History: Occasional Past Drug Use History: None Reported General Exam - General Exam Comments Initial Comments: General: Appears in no acute distress. HEAD: Normal with no signs of head trauma. EYES: PERRLA, EOMI, conjunctiva normal, no discharge. ENT: Hearing grossly intact, normal oropharynx. RESPIRATORY: Bilateral end expiratory wheezing. No significant hypoxia. C/V: Regular rate and rhythm. S1 and S2 auscultated, no edema, peripheral pulses 2+ and intact throughout ABD: Abd is soft, nontender, nondistended EXT: Normal range of motion, no obvious deformity SKIN: No rashes or lesions observed on exposed skin. NEURO: Alert and oriented x 4. Limitations: no limitations Course Vital Signs 06/17/24 06/17/24 06/17/24 09:07 10:23 11:22 Temperature 979.4 F H 97.1 F L Pulse Rate 69 61 Respiratory 16 18 17 Rate Blood Pressure 120/76 149/79 O2 Sat by Pulse 98 99 Oximetry 06/17/24 06/17/24 06/17/24 11:28 11:38 12:49 Temperature 98.1 F Pulse Rate 68 60 73 Respiratory 17 Rate Blood Pressure 134/83 O2 Sat by Pulse 96 Oximetry Medical Decision Making - Medical Decision Making Was pt. sent in by a medical professional or institution (, PA, ADDICTION MEDICINE PHYSICIAN, urgent care, hospital, or skilled nursing...) When possible be specific @ -No Did you speak to anyone other than the patient for history (EMS, parent, family, police, friend...)? What history was obtained from this source @ -No Did you review nursing and triage notes (agree or disagree)? Why? @ -I reviewed and agree with nursing and triage notes Were old charts reviewed (outside hosp., previous admission, EMS record, old EKG, old radiological studies, urgent care reports/EKG's, skilled nursing records)? Report findings @ -No old charts were reviewed Differential Diagnosis (chest pain, altered mental status, abdominal pain women, abdominal pain men, vaginal bleeding, weakness, fever, dyspnea, syncope, headache, dizziness, GI bleed, back pain, seizure, CVA, palpatations, mental health, musculoskeletal)? @ -COVID, flu, RSV, pneumonia, COPD. This list is not all inclusive EKG interpreted by me (3pts min.). @ -As above X-rays interpreted by me (1pt min.). @ -Chest x-ray shows no obvious acute cardiopulmonary process CT interpreted by me (1pt min.). @ -None done U/S interpreted by me (1pt. min.). @ -None done What testing was considered but not performed or refused? (CT, X-rays, U/S, labs)? Why? @ -None What meds were considered but not given or refused? Why? @ -None Did you discuss the management of the patient with other professionals (professionals i.e. , PA, ADDICTION MEDICINE PHYSICIAN, lab, RT, psych nurse, mental health social worker, integration software engineer, teacher, enforcement safety officer, casework supervisor)? Give summary @ -No Was smoking cessation discussed for >3mins.? @ -No Was critical care preformed (if so, how long)? @ -No Were there social determinants of health that impacted care today? How? (Homelessness, low income, unemployed, alcoholism, drug addiction, transportation, low edu. Level, literacy, decrease access to med. care, half-way, rehab)? @ -No Was there de-escalation of care discussed even if they declined (Discuss DNR or withdrawal of care, Hospice)? DNR status @ -No What co-morbidities impacted this encounter? (DM, HTN, Smoking, COPD, CAD, Ca ncer, CVA, ARF, Chemo, Hep., AIDS, mental health diagnosis, sleep apnea, morbid obesity)? @ -None Was patient admitted / discharged? Hospital course, mention meds given and route, prescriptions, significant lab abnormalities, going to OR and other pertinent info. @ -Patient presents with URI symptoms. Former smoker with wheezing. Patient administered IV fluids, IV steroids, breathing treatment. We will obtain infectious workup. Patient was in agreement this plan. Chest x-ray unremarkable. EKG unremarkable. Laboratory studies remarkable for positive influenza A swab. Discussed results with the patient. I believe it is safer to be discharged home. Given a work note. She will be given prednisone and albuterol for home. Patient does not meet criteria for Tamiflu therapy as she has been having symptoms for a week. She was in agreement this plan. I will provide the patient with a prescription for prednisone, albuterol inhaler. I instructed the patient to follow up with their PCP in the next 1-3 days.. I explained that the patient should return to the emergency department i f they experience any worsening symptoms. Strict return precautions were discussed with the patient. The patient expressed understanding of these instructions. I answered all questions that the patient had. The patient was discharged home in good condition with their prescriptions and follow up info rmation. Undiagnosed new problem with uncertain prognosis? @ -No Drug Therapy requiring intensive monitoring for toxicity (Heparin, Nitro, Insulin, Cardizem)? @ -No Were any procedures done? @ -No Diagnosis/symptom? @ -Influenza A infection Acute, or Chronic, or Acute on Chronic? @ -Acute Uncomplicated (without systemic symptoms) or Complicated (systemic symptoms)? @ -Uncomplicated Side effects of treatment? @ -No Exacerbation, Progression, or Severe Exacerbation? @ -No Poses a threat to life or bodily function? How? (Chest pain, [place], CA, pneumonia, PE, COPD, DKA, ARF, appy, cholecystitis, CVA, Diverticulitis, Homicidal, Suicidal, threat to staff... and all critical care pts) @ -Unlikely at this time - Lab Data Result diagrams: 06/17/24 10:12 06/17/24 10:12 Lab Results 06/17/24 06/17/24 06/17/24 Range/Units 09:44 10:12 10:12 WBC 5.0 (3.8-10.6) k/uL RBC 5.31 (3.80-5.40) m/uL Hgb 14.6 (11.4-16.0) gm/dL Hct 44.9 (34.0-46.0) % MCV 84.6 (80.0-100.0) fL MCH 27.4 (25.0-35.0) pg MCHC 32.4 (31.0-37.0) g/dL RDW 13.3 (11.5-15.5) % Plt Count 189 (150-450) k/uL MPV 9.3 Neutrophils % 43 % Lymphocytes % 48 % Monocytes % 5 % Eosinophils % 1 % Basophils % 1 % Neutrophils # 2.2 (1.3-7.7) k/uL Lymphocytes # 2.4 (1.0-4.8) k/uL Monocytes # 0.2 (0-1.0) k/uL Eosinophils # 0.1 (0-0.7) k/uL Basophils # 0.0 (0-0.2) k/uL PT 11.0 (10.0-12.5) sec INR 1.0 (<1.2) APTT 23.0 (22.0-30.0) sec Sodium (137-145) mmol/L Potassium (3.5-5.1) mmol/L Chloride (98-107) mmol/L Carbon Dioxide (22-30) mmol/L Anion Gap mmol/L BUN (7-17) mg/dL Creatinine (0.52-1.04) mg/dL Est GFR (CKD-EPI)AfAm (>60 ml/min/1.73 sqM) Est GFR (CKD-EPI)NonAf (>60 ml/min/1.73 sqM) Glucose (74-99) mg/dL Calcium (8.4-10.2) mg/dL Magnesium (1.6-2.3) mg/dL Total Bilirubin (0.2-1.3) mg/dL AST (14-36) U/L ALT (4-34) U/L Alkaline Phosphatase (38-126) U/L Total Protein (6.3-8.2) g/dL Albumin (3.5-5.0) g/dL Influenza Type A (PCR) Detected A (Not Detectd) Influenza Type B (PCR) Not Detected (Not Detectd) RSV (PCR) Not Detected (Not Detectd) SARS-CoV-2 (PCR) Not Detected (Not Detectd) 06/17/24 Range/Units 10:12 WBC (3.8-10.6) k/uL RBC (3.80-5.40) m/uL Hgb (11.4-16.0) gm/dL Hct (34.0-46.0) % MCV (80.0-100.0) fL MCH (25.0-35.0) pg MCHC (31.0-37.0) g/dL RDW (11.5-15.5) % Plt Count (150-450) k/uL MPV Neutrophils % % Lymphocytes % % Monocytes % % Eosinophils % % Basophils % % Neutrophils # (1.3-7.7) k/uL Lymphocytes # (1.0-4.8) k/uL Monocytes # (0-1.0) k/uL Eosinophils # (0-0.7) k/uL Basophils # (0-0.2) k/uL PT (10.0-12.5) sec INR (<1.2) APTT (22.0-30.0) sec Sodium 136 L (137-145) mmol/L Potassium 4.2 (3.5-5.1) mmol/L Chloride 101 (98-107) mmol/L Carbon Dioxide 28 (22-30) mmol/L Anion Gap 7 mmol/L BUN 14 (7-17) mg/dL Creatinine 0.74 (0.52-1.04) mg/dL Est GFR (CKD-EPI)AfAm >90 (>60 ml/min/1.73 sqM) Est GFR (CKD-EPI)NonAf >90 (>60 ml/min/1.73 sqM) Glucose 89 (74-99) mg/dL Calcium 8.9 (8.4-10.2) mg/dL Magnesium 2.1 (1.6-2.3) mg/dL Total Bilirubin 0.7 (0.2-1.3) mg/dL AST 30 (14-36) U/L ALT 28 (4-34) U/L Alkaline Phosphatase 57 (38-126) U/L Total Protein 6.8 (6.3-8.2) g/dL Albumin 4.0 (3.5-5.0) g/dL Influenza Type A (PCR) (Not Detectd) Influenza Type B (PCR) (Not Detectd) RSV (PCR) (Not Detectd) SARS-CoV-2 (PCR) (Not Detectd) - EKG Data -: EKG Interpreted by Me EKG Comments: 12-lead Electrocardiogram Interpretation Note EKG was reviewed and interpreted by myself. 12-lead ECG performed at 0937 is i nterpreted by me as revealing normal sinus rhythm at a rate of 67 beats per minute. [place] is normal. [place] interval is 199 ms, QRS durations 81 ms, QTc is 417 milliseconds.. There were no ST or T wave abnormalities to suggest myocardial ischemia or injury. R wave progression across the precordium was satisfactory. By my interpretation this EKG is non-diagnostic for acute ischemia. Disposition Clinical Impression: Influenza A Disposition: HOME SELF-CARE Condition: Good Instructions (If sedation given, give patient instructions): Influenza (ED) Prescriptions: predniSONE [Deltasone] 40 mg PO DAILY 5 Days #10 tab Albuterol Inhaler [Ventolin Hfa Inhaler] 1 - 2 puff INHALATION Q6H PRN #1 each PRN Reason: Dyspnea Is patient prescribed a controlled substance at d/c from ED?: No Referrals: Terrence Ledesma [Primary Care Provider] - 1-2 days Time of Disposition: 12:10
[2024-06-17 12:50] VITALS: BP 134/83; PULSE 73; TEMP 98.1
== END 2024-06-17 12:53 | disposition home or self-care (01) ==
LOC: EC 09:01
DX: J10.1 Influenza due to other identified influenza virus with other respiratory manifestations (principal)
CPT/HCPCS: 36415; 94640; 93005; 80053; 83735; 85025; 85610; 85730; 87636; 71046; 99285; 96374; 96361; J2919

== ENCOUNTER 2024-07-12 19:58 | Emergency (ER) | payer BC ==
--- NOTE | 2024-07-12 20:48 | ED ---
Nausea/Vomiting/Diarrhea HPI - General Source: patient, RN notes reviewed Mode of arrival: ambulatory Limitations: no limitations - History of Present Illness MD complaint: nausea, vomiting, abdominal pain <Ayaka Win - Last Filed: 07/13/24 00:41> - General Source: patient, RN notes reviewed Mode of arrival: ambulatory Limitations: no limitations - History of Present Illness MD complaint: nausea, vomiting, abdominal pain <Alberto Ponce - Last Filed: 07/13/24 01:24> - General Chief complaint: Nausea/Vomiting/Diarrhea Stated complaint: Nausea and vomiting Time Seen by Provider: 07/12/24 20:20 - History of Present Illness Initial comments: This is a 49-year-old female who presents to the emergency department for nausea and vomiting. States that earlier today she was feeling generally unwell and proceeded to vomit. Around 7 PM she threw up again, but noticed that there were bright red streaks of blood mixed in with it. She has only had 1 episode of hematemesis at this point. Denies any history of hematemesis and is not taking any blood thinners. Reports upper abdominal pain as well. Denies any changes in bowel or bladder habits. She has not measured any fevers at home but does report chills. (Ayaka Win) - Related Data Home Medications Medication Instructions Recorded Confirmed Lisinopril-Hctz 20-12.5 mg 1 tab PO DAILY 06/07/19 06/17/24 [Zestoretic 20-12.5] Metoprolol Succinate [Toprol XL] 50 mg PO DAILY 06/07/19 06/17/24 Atorvastatin [Lipitor] 20 mg PO DAILY 12/22/23 06/17/24 Escitalopram [Lexapro] 10 mg PO DAILY 12/22/23 06/17/24 Previous Rx's Medication Instructions Recorded Albuterol Inhaler [Ventolin Hfa 1 - 2 puff INHALATION Q6H PRN #1 06/17/24 Inhaler] each predniSONE [Deltasone] 40 mg PO DAILY 5 Days #10 tab 06/17/24 Metoclopramide [Reglan] 10 mg PO Q6H PRN #20 tab 07/13/24 Ondansetron Odt [Zofran Odt] 4 mg PO Q8HR PRN #20 tab 07/13/24 Allergies Allergy/AdvReac Type Severity Reaction Status Date / Time codeine Allergy Unknown Verified 07/12/24 20:04 Review of Systems ROS Other: All systems not noted in ROS Statement are negative. <Ayaka Win - Last Filed: 07/13/24 00:41> ROS Other: All systems not noted in ROS Statement are negative. <Alberto Ponce - Last Filed: 07/13/24 01:24> ROS Statement: Those systems with pertinent positive or pertinent negative responses have been documented in the HPI. Past Medical History Past Medical History: Hypertension History of Any Multi-Drug Resistant Organisms: None Reported Past Surgical History: Cholecystectomy, Tubal Ligation Additional Past Surgical History / Comment(s): cleft lip Past Psychological History: No Psychological Hx Reported Smoking Status: Never smoker Past Alcohol Use History: Occasional Past Drug Use History: None Reported <Ayaka Win - Last Filed: 07/13/24 00:41> General Exam Limitations: no limitations General appearance: alert, in no apparent distress Head exam: Present: atraumatic, normocephalic, normal inspection Respiratory exam: Present: normal lung sounds bilaterally. Absent: respiratory distress, wheezes, rales, rhonchi, stridor Cardiovascular Exam: Present: regular rate, normal rhythm GI/Abdominal exam: Present: soft, tenderness (Upper abdomen), normal bowel sounds. Absent: distended Neurological exam: Present: alert, oriented X3, CN II-XII intact Psychiatric exam: Present: normal affect, normal mood Skin exam: Present: warm, dry, intact, normal color. Absent: rash <Ayaka Win - Last Filed: 07/13/24 00:41> Course Vital Signs 07/12/24 07/12/24 07/12/24 20:00 21:40 23:00 Temperature 100.0 F H 98.1 F Pulse Rate 99 86 82 Respiratory 20 16 17 Rate Blood Pressure 128/85 156/84 153/82 O2 Sat by Pulse 97 95 94 L Oximetry 07/13/24 00:00 Temperature Pulse Rate 80 Respiratory 16 Rate Blood Pressure 119/62 O2 Sat by Pulse 96 Oximetry Medical Decision Making - Lab Data Result diagrams: 07/12/24 20:53 07/12/24 20:53 - Radiology Data Radiology results: report reviewed, image reviewed <Aykaa Win - Last Filed: 07/13/24 00:41> - Lab Data Result diagrams: 07/12/24 20:53 07/12/24 20:53 <Alberto Ponce - Last Filed: 07/13/24 01:24> - Medical Decision Making This is a 49 year old female who presents to the emergency department for abdominal pain, nausea, and vomiting. Was pt. sent in by a medical professional or institution? @ -No Did you speak to anyone other than the patient for history? @ -No Did you review nursing and triage notes? @ -Yes, and I agree, it is accurate with regards to the patient's symptoms. Were old charts reviewed? @ -No Differential Diagnosis? @ -Differential Abdominal Pain Women: Appendicitis, Cholecystitis, diverticulosis, ischemic bowel, pancreatitis, hepatitis, UTI, gastroenteritis, AAA, incarcerated hernia, bowel obstruction, constipation, inflammatory bowel, hepatitis, peptic ulcer disease, splenic infarction, perforated viscus, vulvitis, ovarian torsion, PID, kidney stone, placenta abruption, this is not meant to be an all-inclusive list EKG interpreted by me (3pts min.)? @ -EKG interpreted by me demonstrating the following: Sinus rhythm. Ventricular rate 93 bpm, [place] interval 183 ms, QRS duration 87 ms, QTc 398 ms. X-rays interpreted by me (1pt min.)? @ -Not obtained CT interpreted by me (1pt min.)? @ -CT scan of the abdomen and pelvis obtained. My interpretation identifies dilated small bowel in the left upper quadrant. U/S interpreted by me (1pt. min.)? @ -Pending What testing was considered but not performed? (CT, X-rays, U/S, labs)? Why? @ -None What meds were considered but not given? Why? @ -None Did you discuss the management of the patient with other professionals? @ -No Did you reconcile home meds? @ -No Was smoking cessation discussed for >3mins.? @ -No Was critical care preformed (if so, how long)? @ -No Were there social determinants of health that impacted care today? How? (Homelessness, low income, unemployed, alcoholism, drug addiction, transportatio n, low edu. Level, literacy, decrease access to med. care, [facility], rehab)? @ -No Was there de-escalation of care discussed even if they declined? (Discuss DNR or withdrawal of care, Hospice)? @ -No What co-morbidities impacted this encounter? (DM, HTN, Smoking, COPD, CAD, Cancer, CVA, Hep., AIDS, mental health diagnosis, sleep apnea, morbid obesity)? @ -HTN Was patient admitted / discharged? @ -Lab work unremarkable. Hemoglobin within normal limits. Urinalysis negative for signs of infection. CT scan of the abdomen and pelvis obtained revealing dilated small bowel in the left upper quadrant without focal transition or surrounding inflammatory changes suggestive of an ileus. She also has a large right adnexal mass and ovarian cystic lesions. Pelvic ultrasound was advised for further evaluation. Transvaginal ultrasound subsequently obtained. Case signed out to Alberto Ponce PA-C, at shift completion pending US results and disposition. Undiagnosed new problem with uncertain prognosis? @ -None Drug Therapy requiring intensive monitoring for toxicity (Heparin, Nitro, Insulin, Cardizem)? @ -None Were any procedures done? @ -None (Ayaka Win) - Lab Data Lab Results 07/12/24 07/12/24 07/12/24 Range/Units 20:53 20:53 20:53 WBC 8.9 (3.8-10.6) k/uL RBC 5.40 (3.80-5.40) m/uL Hgb 15.1 (11.4-16.0) gm/dL Hct 44.4 (34.0-46.0) % MCV 82.3 (80.0-100.0) fL MCH 27.9 (25.0-35.0) pg MCHC 33.9 (31.0-37.0) g/dL RDW 13.6 (11.5-15.5) % Plt Count 210 (150-450) k/uL MPV 8.8 Neutrophils % 89 % Lymphocytes % 6 % Monocytes % 3 % Eosinophils % 2 % Basophils % 0 % Neutrophils # 7.9 H (1.3-7.7) k/uL Lymphocytes # 0.5 L (1.0-4.8) k/uL Monocytes # 0.2 (0-1.0) k/uL Eosinophils # 0.2 (0-0.7) k/uL Basophils # 0.0 (0-0.2) k/uL Sodium 135 L (137-145) mmol/L Potassium 4.1 (3.5-5.1) mmol/L Chloride 101 (98-107) mmol/L Carbon Dioxide 23 (22-30) mmol/L Anion Gap 11 mmol/L BUN 15 (7-17) mg/dL Creatinine 0.64 (0.52-1.04) mg/dL Est GFR (CKD-EPI)AfAm >90 (>60 ml/min/1.73 sqM) Est GFR (CKD-EPI)NonAf >90 (>60 ml/min/1.73 sqM) Glucose 138 H (74-99) mg/dL Plasma Lactic Acid [place] 1.6 (0.7-2.0) mmol/L Calcium 9.1 (8.4-10.2) mg/dL Magnesium 1.8 (1.6-2.3) mg/dL Total Bilirubin 0.9 (0.2-1.3) mg/dL AST 23 (14-36) U/L ALT 20 (4-34) U/L Alkaline Phosphatase 70 (38-126) U/L Troponin I (0.000-0.034) ng/mL Total Protein 7.2 (6.3-8.2) g/dL Albumin 4.2 (3.5-5.0) g/dL Amylase 56 (30-110) U/L Lipase 60 (23-300) U/L Urine Color Urine Appearance (Clear) Urine pH (5.0-8.0) Ur Specific [place] (1.001-1.035) Urine Protein (Negative) Urine Glucose (UA) (Negative) Urine Ketones (Negative) Urine Blood (Negative) Urine Nitrite (Negative) Urine Bilirubin (Negative) Urine Urobilinogen (<2.0) mg/dL Ur Leukocyte Esterase (Negative) 07/12/24 07/12/24 Range/Units 20:53 22:33 WBC (3.8-10.6) k/uL RBC (3.80-5.40) m/uL Hgb (11.4-16.0) gm/dL Hct (34.0-46.0) % MCV (80.0-100.0) fL MCH (25.0-35.0) pg MCHC (31.0-37.0) g/dL RDW (11.5-15.5) % Plt Count (150-450) k/uL MPV Neutrophils % % Lymphocytes % % Monocytes % % Eosinophils % % Basophils % % Neutrophils # (1.3-7.7) k/uL Lymphocytes # (1.0-4.8) k/uL Monocytes # (0-1.0) k/uL Eosinophils # (0-0.7) k/uL Basophils # (0-0.2) k/uL Sodium (137-145) mmol/L Potassium (3.5-5.1) mmol/L Chloride (98-107) mmol/L Carbon Dioxide (22-30) mmol/L Anion Gap mmol/L BUN (7-17) mg/dL Creatinine (0.52-1.04) mg/dL Est GFR (CKD-EPI)AfAm (>60 ml/min/1.73 sqM) Est GFR (CKD-EPI)NonAf (>60 ml/min/1.73 sqM) Glucose (74-99) mg/dL Plasma Lactic Acid [place] (0.7-2.0) mmol/L Calcium (8.4-10.2) mg/dL Magnesium (1.6-2.3) mg/dL Total Bilirubin (0.2-1.3) mg/dL AST (14-36) U/L ALT (4-34) U/L Alkaline Phosphatase (38-126) U/L Troponin I <0.012 (0.000-0.034) ng/mL Total Protein (6.3-8.2) g/dL Albumin (3.5-5.0) g/dL Amylase (30-110) U/L Lipase (23-300) U/L Urine Color Light Yellow Urine Appearance Clear (Clear) Urine pH 6.5 (5.0-8.0) Ur Specific [place] >1.050 H (1.001-1.035) Urine Protein Negative (Negative) Urine Glucose (UA) Negative (Negative) Urine Ketones Negative (Negative) Urine Blood Negative (Negative) Urine Nitrite Negative (Negative) Urine Bilirubin Negative (Negative) Urine Urobilinogen <2.0 (<2.0) mg/dL Ur Leukocyte Esterase Negative (Negative) Disposition <Ayaka Win - Last Filed: 07/13/24 00:41> Is patient prescribed a controlled substance at d/c from ED?: No <Alberto Ponce - Last Filed: 07/13/24 01:24> Clinical Impression: [place] Disposition: HOME SELF-CARE Condition: Good Instructions (If sedation given, give patient instructions): Acute Nausea and Vomiting (ED) Additional Instructions: 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 Prescriptions: Metoclopramide [Reglan] 10 mg PO Q6H PRN #20 tab PRN Reason: Nausea And Vomiting Ondansetron Odt [Zofran Odt] 4 mg PO Q8HR PRN #20 tab PRN Reason: Nausea And Vomiting Referrals: Terrence Ledesma [Primary Care Provider] - 1-2 days Yessi Beckham MD [STAFF PHYSICIAN] - 1-2 days Luana Diaz DO [Doctor of Osteopathic Medicine] - 1-2 days
[2024-07-12 21:04] LABS: Basophils % (A) 0 %; Eosinophils # (A) 0.2 k/uL (0-0.7); Eosinophils % (A) 2 %; HCT 44.4 % (34.0-46.0); HGB 15.1 gm/dL (11.4-16.0); Lymphocytes # (A) 0.5 k/uL (1.0-4.8); Lymphocytes % (A) 6 %; MCH 27.9 pg (25.0-35.0); MCHC 33.9 g/dL (31.0-37.0); MCV 82.3 fL (80.0-100.0); Mean Platelet Volume 8.8; Monocytes # (A) 0.2 k/uL (0-1.0); Monocytes % (A) 3 %; Neutrophils # (A) 7.9 k/uL (1.3-7.7); Neutrophils % (A) 89 %; Platelet Count 210 k/uL (150-450); RDW 13.6 % (11.5-15.5); WBC 8.9 k/uL (3.8-10.6)
[2024-07-12 21:16] LABS: ALT 20 U/L (4-34); African American GFR (CKD) >90 (>60 ml/min/1.73 sqM); Albumin 4.2 g/dL (3.5-5.0); Amylase 56 U/L (30-110); Anion Gap 11 mmol/L; Blood Urea Nitrogen 15 mg/dL (7-17); Calcium 9.1 mg/dL (8.4-10.2); Carbon Dioxide 23 mmol/L (22-30); Chloride 101 mmol/L (98-107); Glucose 138 mg/dL (74-99); Lipase 60 U/L (23-300); Non-African American GFR(CKD) >90 (>60 ml/min/1.73 sqM); Sodium 135 mmol/L (137-145); Total Bilirubin 0.9 mg/dL (0.2-1.3); Total Protein 7.2 g/dL (6.3-8.2)
[2024-07-12 21:18] LABS: AST 23 U/L (14-36); Alkaline Phosphatase 70 U/L (38-126); Magnesium 1.8 mg/dL (1.6-2.3); Potassium 4.1 mmol/L (3.5-5.1)
[2024-07-12] MEDS: PANTOPRAZOLE 40 MG/10 ML VIAL IVP STA (21:40)
[2024-07-12] MEDS: ONDANSETRON 4 MG/2 ML VIAL IVP STA (21:40)
[2024-07-12] MEDS: HYDROmorphone 1 MG/ML 1 ML SYRINGE IVP STA (21:40)
[2024-07-12] MEDS: SODIUM CHLORIDE 0.9% 1,000 ML IV ONE (21:45)
--- NOTE | 2024-07-12 21:53 | CT ---
EXAMINATION TYPE: CT abdomen pelvis w con CT DLP: 2153.4 mGycm, Automated exposure control for dose reduction was used. DATE OF EXAM: 07/12/2024 9:41 PM COMPARISON: Pelvic radiograph 04/22/2021 CLINICAL INDICATION:Female, 49 years old with history of Upper abdominal pain; Vomiting blood x 4 herbert rs. TECHNIQUE: Standard CT of the abdomen and pelvis following the administration of 100 cc of Isovue 3 00 IV contrast material. Coronal and sagittal reformats were performed. FINDINGS: LOWER CHEST: Minimal bilateral lower lobe subsegmental atelectasis. ABDOMEN LIVER: Unremarkable GALLBLADDER AND BILE DUCTS: The gallbladder is surgically absent. No biliary ductal dilatation. PANCREAS: Unremarkable. SPLEEN: Unremarkable. ADRENAL GLANDS: Unremarkable. KIDNEYS AND URETERS: No evidence of hydronephrosis or renal calculus. The kidneys enhance symmetrical ly. Contrast is demonstrated within both collecting systems and proximal ureters on the delayed phase . PELVIS BLADDER: Underdistended but grossly unremarkable. REPRODUCTIVE: Anteverted uterus which is displaced to the left. Large right adnexal mass measuring 10 .9 x 7.8 cm (series 201, image 84). Along the anterior superior aspect is a cystic lesion measuring u p to 3.1 cm (series 200 175). Left ovarian cystic lesion measuring up to 6.4 cm (series 201, image 73 ). Additionally there is a pedunculated appearing inferior uterine fundal mass measuring 3.7 cm with dystrophic calcification. ABDOMEN & PELVIS STOMACH AND BOWEL: Stomach and duodenum are unremarkable. Scattered distal colonic diverticulosis wit hout evidence for acute diverticulitis. The appendix is within normal limits. Dilated small bowel wit hin the left upper quadrant measuring up to 3.4 cm without wall thickening or surrounding inflammator y changes. No focal transition point. No evidence of bowel obstruction. PERITONEUM: No evidence of pneumoperitoneum or free fluid. VASCULATURE: Mild atherosclerotic calcifications are present throughout the abdominal aorta and its b ranches. No evidence of aortic aneurysm. Right-sided pelvic phleboliths. MUSCULOSKELETAL: No acute osseous abnormalities. Degenerative changes of the pubic symphysis. Degener ative disc disease at L5-S1. No aggressive osseous lesion. LYMPH NODES: No evidence for lymphadenopathy. SOFT TISSUE/ABDOMINAL WALL: Unremarkable IMPRESSION: 1. Dilated small bowel within the left upper quadrant without focal transition or surrounding inflam matory changes. Correlate for ileus. 2. Large right adnexal mass measuring up to 10.9 cm which may represent a fibroid versus ovarian mass . Adjacent indeterminate cystic 3.1 cm lesion more midline. Indeterminate left ovarian cystic lesion measuring up to 6.5 cm. Additional exophytic right uterine fundal fibroid measuring up to 3.7 cm. Fur ther evaluation with pelvic ultrasound is recommended. 3. Colonic diverticulosis without evidence for acute diverticulitis. [facility], , 07/12/2024 9:51 PM
[2024-07-12 22:40] LABS: Appearance,Urine Clear (Clear); Bilirubin,Urine Negative (Negative); Blood,Urine Negative (Negative); Color,Urine Light Yellow; Glucose,Urine (UA) Negative (Negative); Ketones,Urine Negative (Negative); Leukocyte Esterase,Urine Negative (Negative); Nitrite,Urine Negative (Negative); PH, Urine 6.5 (5.0-8.0); Protein,Urine Negative (Negative); Specific Gravity,Urine >1.050 (1.001-1.035); Urobilinogen,Urine <2.0 mg/dL (<2.0)
[2024-07-12] MEDS: METOCLOPRAMIDE 5 MG/ML 2 ML VIAL IVP STA (23:46)
--- NOTE | 2024-07-13 01:57 | US ---
Exam: US PELVIC TA + TV CLINICAL INDICATION: Female, 49 years old with history of Abdominal pain, abnormal CT; Amenorrhea x 7-8 months, spotting 1.5 weeks ago; Hx Fibroids x 25 years; Hx Tubal; Patient denies any other signs, symptoms, or relevant history Date of LMP: 1.5 weeks ago; Otherwise 7-8 months ago Comparison: CT abdomen and pelvis from today TECHNIQUE: Transvaginal (TV) and Transabdominal (TA) . Transvaginal images were ordered. Transabdominal images taken to better assess Uterus, Ovaries, and Endometrium Doppler imaging: Not performed. Limitation: Difficult exam due to multiple uterine fibroids FINDINGS: Uterus: Anteverted measuring about 13.8 cm longitudinally. Multiple fibroids. Largest is likely pedunculated arising from the mid right mid body of uterus, measuring about 11.8 x 10.3 x 7.8 cm , better seen on comparison CT chest Endometrial Stripe: 0.7 cm Right Ovary: Poorly visualized Left Ovary: Cystic structure of left adnexa measuring about 5.0 x 4.5 x 6.5 cm with ? debris vs focal wall thickening vs solid component, best seen on image 34, measuring about 8 x 14 mm. The ovarian parenchyma is not definitely demonstrated, presumably surrounding the cystic lesion which demonstrates normal color Doppler flow. No free pelvic fluid demonstrated. IMPRESSION: Fibroid uterus. Large rounded lesion in central pelvis, right side of uterus betters demonstrated on comparison CT may represent exophytic fibroid versus large hemorrhagic cyst. Neoplastic etiologies cannot be excluded. 5.0 x 4.5 x 6.5 cm left adnexal cystic lesion, likely a complex or hemorrhagic cyst. Cystic ovarian neoplasm cannot be ruled out. Follow- up to resolution is recommended. Endometrial echo complex is unremarkable.
[2024-07-13] MEDS: ONDANSETRON 4 MG ODT STARTER PACK 2 TAB BTL PO STA (02:07)
[2024-07-13 02:13] VITALS: BP 125/81; PULSE 73; RESP 18; TEMP 98
== END 2024-07-13 02:15 | disposition home or self-care (01) ==
LOC: EC 19:58
DX: K56.7 Ileus, unspecified (principal); Z88.5 Allergy status to narcotic agent
CPT/HCPCS: 36415; 93005; 80053; 82150; 83605; 83690; 83735; 84484; 85025; 81003; 76856; 76830; 74177; 99284; 96374; 96375; 96361; J2765; J2405; J1171; Q9967; J2470

== ENCOUNTER 2024-08-22 08:33 | Emergency (ER) | payer BC ==
[2024-08-22 08:40] VITALS: RESP 18; TEMP 97.4
[2024-08-22] MEDS: KETOROLAC 15 MG/ML 1 ML VIAL IVP STA (09:22)
[2024-08-22] MEDS: ONDANSETRON 4 MG/2 ML VIAL IVP STA ×2 (09:24→12:20)
[2024-08-22] MEDS: SODIUM CHLORIDE 0.9% 1,000 ML IV ONE (09:25)
[2024-08-22 09:40] LABS: Basophils # (A) 0.03 10*3/uL (0.00-0.10); Basophils % (A) 0.3 %; Eosinophils # (A) 0.11 10*3/uL (0.04-0.35); Eosinophils % (A) 1.2 %; HCT 41.8 % (37.2-46.3); HGB 14.5 g/dL (12.0-15.0); Lymphocytes % (A) 24.3 %; MCH 28.9 pg (27.0-32.0); MCHC 34.7 g/dL (32.0-37.0); MCV 83.3 fL (80.0-97.0); Mean Platelet Volume 12.1 fL (9.5-12.2); Monocytes # (A) 0.37 10*3/uL (0.20-1.00); Monocytes % (A) 4.1 %; Neutrophils # (A) 6.33 10*3/uL (1.80-7.70); Neutrophils % (A) 69.8 %; Platelet Count 261 10*3/uL (140-440); RBC 5.02 10*6/uL (4.10-5.20); RDW 13.6 % (11.5-14.5); WBC 9.07 10*3/uL (4.50-10.00)
[2024-08-22 09:51] LABS: ALT 19 U/L (4-34); AST 19 U/L (14-36); African American GFR (CKD) >90 (>60 ml/min/1.73 sqM); Alkaline Phosphatase 69 U/L (38-126); Anion Gap 7 mmol/L; Blood Urea Nitrogen 12 mg/dL (7-17); Calcium 9.4 mg/dL (8.4-10.2); Carbon Dioxide 27 mmol/L (22-30); Chloride 102 mmol/L (98-107); Glucose 84 mg/dL (74-99); Lipase 82 U/L (23-300); Non-African American GFR(CKD) >90 (>60 ml/min/1.73 sqM); Potassium 3.9 mmol/L (3.5-5.1); Sodium 136 mmol/L (137-145); Total Bilirubin 0.6 mg/dL (0.2-1.3); Total Protein 6.7 g/dL (6.3-8.2)
--- NOTE | 2024-08-22 10:06 | ED ---
Abdominal Pain HPI - General Chief Complaint: Abdominal Pain Stated Complaint: ABD Pain Time Seen by Provider: 08/22/24 08:37 Source: patient, RN notes reviewed Mode of arrival: ambulatory Limitations: no limitations - History of Present Illness Initial Comments: 49-year-old female presents emergency department complaints of abdominal pain. Patient states she has been having abdominal pain for a while she had a recent CT and ultrasound showing very large ovarian cyst and uterine fibroid. She was scheduled for repeat ultrasound with her LIFE CLAIMS EXAMINER states pain worsened today. She has no dysuria she does have urinary frequency which is chronic. No change in bowel habits denies fever chills no chest pain no shortness of breath no back pain. No history of kidney stones. - Related Data Home Medications Medication Instructions Recorded Confirmed Lisinopril-Hctz 20-12.5 mg 1 tab PO DAILY 06/07/19 06/17/24 [Zestoretic 20-12.5] Metoprolol Succinate [Toprol XL] 50 mg PO DAILY 06/07/19 06/17/24 Atorvastatin [Lipitor] 20 mg PO DAILY 12/22/23 06/17/24 Escitalopram [Lexapro] 10 mg PO DAILY 12/22/23 06/17/24 Previous Rx's Medication Instructions Recorded Albuterol Inhaler [Ventolin Hfa 1 - 2 puff INHALATION Q6H PRN #1 06/17/24 Inhaler] each predniSONE [Deltasone] 40 mg PO DAILY 5 Days #10 tab 06/17/24 Metoclopramide [Reglan] 10 mg PO Q6H PRN #20 tab 07/13/24 Ondansetron Odt [Zofran Odt] 4 mg PO Q8HR PRN #20 tab 07/13/24 HYDROcodone/APAP 5-325MG [Atkinson 5] 1 each PO Q6HR PRN #12 tab 08/22/24 Allergies Allergy/AdvReac Type Severity Reaction Status Date / Time codeine Allergy Unknown Verified 08/22/24 08:39 Review of Systems ROS Statement: Those systems with pertinent positive or pertinent negative responses have been documented in the HPI. ROS Other: All systems not noted in ROS Statement are negative. Past Medical History Past Medical History: Hypertension Additional Past Medical History / Comment(s): cyst to left ovary, History of Any Multi-Drug Resistant Organisms: None Reported Past Surgical History: Cholecystectomy, Tubal Ligation Additional Past Surgical History / Comment(s): cleft lip Past Psychological History: No Psychological Hx Reported Smoking Status: Never smoker Past Alcohol Use History: Occasional Past Drug Use History: None Reported General Exam Limitations: no limitations General appearance: alert, in no apparent distress Head exam: Present: atraumatic, normocephalic, normal inspection Neck exam: Present: normal inspection, full ROM. Absent: tenderness, menin gismus, lymphadenopathy Respiratory exam: Present: normal lung sounds bilaterally. Absent: respiratory distress, wheezes, rales, rhonchi, stridor Cardiovascular Exam: Present: regular rate, normal rhythm, normal heart sounds. Absent: systolic murmur, diastolic murmur, rubs, gallop, clicks GI/Abdominal exam: Present: soft, tenderness, normal bowel sounds. Absent: distended, guarding, rebound, rigid Back exam: Absent: CVA tenderness (R), CVA tenderness (L) Neurological exam: Present: alert, oriented X3 Skin exam: Present: warm, dry, intact, normal color. Absent: rash Course Vital Signs 08/22/24 08/22/24 08:35 12:19 Temperature 97.4 F L Pulse Rate 62 77 Respiratory 18 18 Rate Blood Pressure 137/85 146/79 O2 Sat by Pulse 99 96 Oximetry Medical Decision Making - Medical Decision Making Was pt. sent in by a medical professional or institution (, PA, CNC LATHE MACHINE OPERATOR, urgent care, hospital, or group home...) When possible be specific @ -No Did you speak to anyone other than the patient for history (EMS, parent, family, police, friend...)? What history was obtained from this source @ -No Did you review nursing and triage notes (agree or disagree)? Why? @ -I reviewed and agree with nursing and triage notes Were old charts reviewed (outside hosp., previous admission, EMS record, old EKG, old radiological studies, urgent care reports/EKG's, group home records)? Report findings @ -No old charts were reviewed Differential Diagnosis (chest pain, altered mental status, abdominal pain women, abdominal pain men, vaginal bleeding, weakness, fever, dyspnea, syncope, headache, dizziness, GI bleed, back pain, seizure, CVA, palpatations, mental health, musculoskeletal)? @ -Differential Abdominal Pain Women: Appendicitis, Cholecystitis, diverticulosis, ischemic bowel, pancreatitis, hepatitis, UTI, gastroenteritis, AAA, incarcerated hernia, bowel obstruction, constipation, inflammatory bowel, hepatitis, peptic ulcer disease, splenic infarction, perforated viscus, vulvitis, ovarian torsion, PID, kidney stone, placenta abruption, this is not meant to be an all-inclusive list EKG interpreted by me (3pts min.). @ -None X-rays interpreted by me (1pt min.). @ -None done CT interpreted by me (1pt min.). @ -None done U/S interpreted by me (1pt. min.). @ -All sound pelvic showing evidence of large ovarian cyst versus mass consistent with prior ultrasound no evidence of torsion What testing was considered but not performed or refused? (CT, X-rays, U/S, labs)? Why? @ -None What meds were considered but not given or refused? Why? @ -None Did you discuss the management of the patient with other professionals (lisa church i.e. , PA, CNC LATHE MACHINE OPERATOR, lab, RT, psych nurse, social media marketing manager, management development specialist, teacher, contact officer, high risk case manager)? Give summary @ -No Was smoking cessation discussed for >3mins.? @ -No Was critical care preformed (if so, how long)? @ -No Were there social determinants of health that impacted care today? How? (Homelessness, low income, unemployed, alcoholism, drug addiction, transportation, low edu. Level, literacy, decrease access to med. care, long term, rehab)? @ -No Was there de-escalation of care discussed even if they declined (Discuss DNR or withdrawal of care, Hospice)? DNR status @ -No What co-morbidities impacted this encounter? (DM, HTN, Smoking, COPD, CAD, Cancer, CVA, ARF, Chemo, Hep., AIDS, mental health diagnosis, sleep apnea, morbid obesity)? @ -None Was patient admitted / discharged? Hospital course, mention meds given and route, prescriptions, significant lab abnormalities, going to OR and other pertinent info. @ -Discharged patient symptoms are improved laboratory studies unremarkable. Patient's prior CT showed no evidence of kidney stone. Patient does have ovarian cyst which is known and she has scheduled follow-up. She was and has no evidence of torsion we discharged in stable condition. Undiagnosed new problem with uncertain prognosis? @ -No Drug Therapy requiring intensive monitoring for toxicity (Heparin, Nitro, Insulin, Cardizem)? @ -No Were any procedures done? @ -No Diagnosis/symptom? @ -Abdominal pain, ovarian cyst Acute, or Chronic, or Acute on Chronic? @ -Acute Uncomplicated (without systemic symptoms) or Complicated (systemic symptoms)? @ -Uncomplicated Side effects of treatment? @ -No Exacerbation, Progression, or Severe Exacerbation? @ -No Poses a threat to life or bodily function? How? (Chest pain, [place], [place], pneumonia, PE, COPD, DKA, ARF, appy, cholecystitis, CVA, Diverticulitis, Homicidal, Suicidal, threat to staff... and all critical care pts) @ -No - Lab Data Result diagrams: 08/22/24 09:26 08/22/24 09:26 Lab Results 08/22/24 08/22/24 08/22/24 Range/Units 09:26 09:26 09:58 WBC 9.07 (4.50-10.00) 10*3/uL RBC 5.02 (4.10-5.20) 10*6/uL Hgb 14.5 (12.0-15.0) g/dL Hct 41.8 (37.2-46.3) % MCV 83.3 (80.0-97.0) fL MCH 28.9 (27.0-32.0) pg MCHC 34.7 (32.0-37.0) g/dL Plt Count 261 (140-440) 10*3/uL MPV 12.1 (9.5-12.2) fL Immature Gran % (Auto) 0.3 % Neutrophils % 69.8 % Lymphocytes % 24.3 % Monocytes % 4.1 % Eosinophils % 1.2 % Basophils % 0.3 % Immature Gran # 0.03 (0.00-0.04) 10*3/uL Neutrophils # 6.33 (1.80-7.70) 10*3/uL Lymphocytes # 2.20 (0.90-5.00) 10*3/uL Monocytes # 0.37 (0.20-1.00) 10*3/uL Eosinophils # 0.11 (0.04-0.35) 10*3/uL Basophils # 0.03 (0.00-0.10) 10*3/uL Sodium 136 L (137-145) mmol/L Potassium 3.9 (3.5-5.1) mmol/L Chloride 102 (98-107) mmol/L Carbon Dioxide 27 (22-30) mmol/L Anion Gap 7 mmol/L BUN 12 (7-17) mg/dL Creatinine 0.56 (0.52-1.04) mg/dL Est GFR (CKD-EPI)AfAm >90 (>60 ml/min/1.73 sqM) Est GFR (CKD-EPI)NonAf >90 (>60 ml/min/1.73 sqM) Glucose 84 (74-99) mg/dL Calcium 9.4 (8.4-10.2) mg/dL Total Bilirubin 0.6 (0.2-1.3) mg/dL AST 19 (14-36) U/L ALT 19 (4-34) U/L Alkaline Phosphatase 69 (38-126) U/L Total Protein 6.7 (6.3-8.2) g/dL Albumin 4.0 (3.5-5.0) g/dL Lipase 82 (23-300) U/L Urine Color Colorless Urine Appearance Clear (Clear) Urine pH 5.5 (5.0-8.0) Ur Specific [place] 1.012 (1.001-1.035) Urine Protein Negative (Negative) Urine Glucose (UA) Negative (Negative) Urine Ketones Negative (Negative) Urine Blood Negative (Negative) Urine Nitrite Negative (Negative) Urine Bilirubin Negative (Negative) Urine Urobilinogen <2.0 (<2.0) mg/dL Ur Leukocyte Esterase Negative (Negative) Disposition Clinical Impression: Abdominal pain, Ovarian cyst Disposition: HOME SELF-CARE Condition: Stable Instructions (If sedation given, give patient instructions): Abdominal Pain (ED) Additional Instructions: Please return to the Emergency Department if symptoms worsen or any other concerns. Prescriptions: HYDROcodone/APAP 5-325MG [Atkinson 5] 1 each PO Q6HR PRN #12 tab PRN Reason: Pain Is patient prescribed a controlled substance at d/c from ED?: Yes When asked, does pt state using other controlled substances?: No If prescribed controlled substance>3 days was MAPS reviewed?: Prescribed <3 Days If opioid is for acute pain is fill amount 7 days or less?: No If Rx opioid, was Start Talking consent form obtained?: No Referrals: Terrence Ledesma [Primary Care Provider] - 1-2 days Time of Disposition: 12:06
--- NOTE | 2024-08-22 10:35 | US ---
EXAMINATION TYPE: US pelvic complete DATE OF EXAM: 08/22/2024 COMPARISON: US 2024 CLINICAL INDICATION: Female, 49 years old with history of left ovarian cyst, pain; TECHNIQUE: Transabdominal (TA). FINDINGS: Date of LMP: 1-2 weeks ago EXAM MEASUREMENTS: Uterus: 13.6 x 9.4 x 14.7 cm Endometrial Stripe: 0.9 cm Right Ovary: not seen Left Ovary: 6.8 x 5.3 x 6.5 cm 1. Uterus: anteverted, enlarged, heterogeneous with multiple fibroid 2. Endometrium: visualized portion appears wnl 3. Right Ovary: not seen due to overlying bowel gas 4. Left Ovary: possible ovarian cyst 5. Bilateral Adnexa: left adnexa - 5.1 x 4.9 x 5.4cm complex cystic area - possible ovarian tissue s urrounding cyst shows venous and arterial flow 6. Posterior cul-de-sac: wnl IMPRESSION: 1. Complex cyst lesion left ovary is essentially unchanged relative to prior examination. Cystic neop lasm is not excluded. Consider direct visualization. 2. Fibroid uterus. O-RADS 2021 [email or web address] [facility], , 08/22/2024 10:32 AM
[2024-08-22 10:47] LABS: Appearance,Urine Clear (Clear); Bilirubin,Urine Negative (Negative); Blood,Urine Negative (Negative); Color,Urine Colorless; Glucose,Urine (UA) Negative (Negative); Ketones,Urine Negative (Negative); Leukocyte Esterase,Urine Negative (Negative); Nitrite,Urine Negative (Negative); PH, Urine 5.5 (5.0-8.0); Protein,Urine Negative (Negative); Specific Gravity,Urine 1.012 (1.001-1.035); Urobilinogen,Urine <2.0 mg/dL (<2.0)
--- NOTE | 2024-08-22 11:27 | XR ---
EXAMINATION TYPE: XR KUB DATE OF EXAM: 08/22/2024 11:18 AM COMPARISON: None. CLINICAL INDICATION: Female, 49 years old with history of pain, TECHNIQUE: Single view of the abdomen. FINDINGS: Small bowel demonstrates no evidence for dilatation or air fluid levels. Gas and fecal material is seen in non-distended colon. No convincing evidence for pneumoperitoneum. 3.7 cm calcification left hemipelvis is of uncertain etiology. Cholecystectomy clips are in place. The lung bases are clear. The osseous structures are intact. IMPRESSION: 1. Overall nonobstructive bowel gas pattern. [facility], , 08/22/2024 11:25 AM
[2024-08-22 12:20] VITALS: BP 146/79; PULSE 77
[2024-08-22] MEDS: HYDROmorphone 0.5 MG/0.5 ML SYRINGE IVP STA (12:21)
== END 2024-08-22 12:35 | disposition home or self-care (01) ==
LOC: EC 08:33
DX: N83.202 Unspecified ovarian cyst, left side (principal); Z88.5 Allergy status to narcotic agent
CPT/HCPCS: 36415; 80053; 83690; 85025; 81003; 74018; 76856; 99284; 96374; 96375 ×2; 96376; 96361; J2405; J1885; J1171

== ENCOUNTER 2024-09-19 08:07 | Day surgery (SDC) | payer BC ==
[2024-09-12 11:14] VITALS: BMI 40.7
[~2024-09-19 08:07] MED LIST: LIDOCAINE 1% (10MG/ML) FOR IV START INTRADERMA PRN; fentaNYL (PF) 50 MCG/ML 2 ML AMP IV PRN
[2024-09-19] MEDS: IV FLUID CONTINUATION 1,000 ML IV ONE ×2 (08:36→15:29)
[2024-09-19] MEDS: LACTATED RINGERS 1,000 ML IV SCH ×2 (09:26→23:45)
[2024-09-19] MEDS: DEXAMETHASONE SOD PHOSPHATE 4 MG/ML 1 ML VIAL IV ONE (09:26)
[2024-09-19] MEDS: ONDANSETRON 4 MG/2 ML VIAL IVP ONE (09:26)
[2024-09-19] MEDS ORDERED: WATER FOR INJECTION, STERILE 10 ML VIAL IV ONE (09:57)
[2024-09-19] MEDS ORDERED: PHENYLEPHRINE 10 MG/ML VIAL ONE (09:57)
[2024-09-19] MEDS ORDERED: fentaNYL (PF) 50 MCG/ML 2 ML AMP ONE (09:57)
[2024-09-19] MEDS ORDERED: ROCURONIUM 10 MG/ML (5 ML VIAL) IV ONE (09:57)
[2024-09-19] MEDS ORDERED: diphenhydrAMINE 50 MG/ML 1 ML VIAL ONE (09:57)
[2024-09-19] MEDS ORDERED: ALBUMIN HUMAN 5% (25gm) 500 ML VIAL IVPB ONE (09:57)
[2024-09-19] MEDS ORDERED: SUCCINYLCHOLINE CHLORIDE 200 MG/10 ML VIAL IV ONE (09:57)
[2024-09-19] MEDS ORDERED: ePHEDrine 50 MG/ML 1 ML VIAL ONE (09:57)
[2024-09-19] MEDS ORDERED: NEOSTIGMINE 1 MG/ML 10 ML VIAL ONE (09:57)
[2024-09-19] MEDS ORDERED: PROPOFOL 10 MG/ML 20 ML VIAL IV ONE (09:57)
[2024-09-19] MEDS ORDERED: LIDOCAINE 1% INJ 10MG/ML (20 ML MDV) ONE (09:57)
[2024-09-19] MEDS ORDERED: GLYCOPYRROLATE 0.2 MG/ML 2 ML VIAL ONE (09:57)
[2024-09-19] MEDS: SCOPOLAMINE 1 MG/72 HR PATCH TRANSDERM STA ×2 (09:57→17:49)
[2024-09-19] MEDS ORDERED: ACETAMINOPHEN IV (For NPO) 1,000 MG/100 ML VIAL ONE (09:57)
[2024-09-19] MEDS ORDERED: MIDAZOLAM 2 MG/2 ML VIAL ONE (09:57)
[2024-09-19] MEDS: MIDAZOLAM 2 MG/2 ML VIAL IV ONE (09:58)
[2024-09-19] MEDS: ceFAZolin 2 GM in DEXTROSE 5% IN WATER 50 ML IVPB PRN (10:02)
[2024-09-19] MEDS: fentaNYL (PF) 50 MCG/ML 2 ML AMP IV PRN (10:09)
[2024-09-19] MEDS: BUPIVACAINE (PF) 0.25% 30 ML VIAL SQ ONE ×2 (10:28)
[2024-09-19] MEDS: LACTATED RINGERS 1,000 ML IV ONE (11:04)
--- NOTE | 2024-09-19 11:12 | P.ANPRN ---
Procedure Note - Anesthesia - Epidural/Spinal Spinal Time Out Performed: Yes Date of Procedure: 09/19/24 Procedure Start Time: 09:47 Procedure Stop Time: 09:53 Location of Patient: PreOp Indication: Acute Post-Operative Pain, Requested by Surgeon (malu) Sedation Type: Sedate with meaningful contact maintained Preparation: Sterile Prep Position: Sitting Catheter: None Needle Guage: 25 Injectate: lido 1% 3cc local, fentanyl 25mcg and duramorph 300mcg Blood Aspirated: No Pain Paresthesia on Injection Noted: No Events: Uneventful and Well Tolerated
--- NOTE | 2024-09-19 13:54 | P.OP ---
Date of Procedure: 09/19/24 Preoperative Diagnosis: 1. Abnormal Uterine Bleeding 2. Uterine Fibroids 3. Left Complex Ovarian Cyst Postoperative Diagnosis: Same Procedure(s) Performed: Robotic Assisted Total Laparoscopic Hysterectomy, Bilateral Salpingoophorectomy, Diagnostic Cystoscopy Implants: None Anesthesia: GETA, spinal Surgeon: Alea Berkowitz Technology Education Instructor #1: Geneva Dempsey Estimated Blood Loss (ml): 900 IV fluids (ml): 2,000 Urine output (ml): 500 Pathology: other (uterus with multiple fibroids, cervix, bilateral fallopian tubes, bilateral ovaries) Condition: stable Indications for Procedure: Ms. Link is a 49 year old female with AUB and an enlarged fibroid uterus as well as a left ovarian complex mass. She presents for RATLH, LSO, right salpingectomy, and diagnostic cystoscopy. Risks, benefits, and alternatives to surgery are discussed with the patient including risk of bleeding, infection, damage to surrounding structures including bladder/bowel/ureters, and post- operative VTE. The patient understands these risks and desires to proceed with surgery as discussed. Operative Findings: Large left ovarian mass, drained inside of a bag with clear fluid noted. Multiple pedunculated and parasitic fibroids extending into bladder and right broad ligament. Bilateral fallopian tubes and right ovary appear within normal limits. Description of Procedure: Prior to the beginning of the procedure, the team paused to verify the patient's identity, the procedure to be performed (in accordance with the consent,) and the correct side/site. The patient was positioned appropriately. All relevant images and results were properly labeled and displayed. We addressed antibiotic prophylaxis and fluids for irrigation as applicable to this patient. Any safety precautions were addressed. The patient was taken to the operating room where general anesthesia was induced without difficulty. She was then positioned in the dorsal lithotomy position in [facility]. Positioning included placing her arms at her sides. After the patient was placed in what was felt to be a neurologically safe position, deep Trendelenburg position was tested prior to the operative procedure, to ensure that she would not move on the operating table. The patient was then prepped and draped in the normal sterile fashion for a combined abdominovaginal surgery. A Banks catheter was placed in the bladder for continuous drainage. Uterus was sounded to 14 cm. [employer] manipulator was placed in the uterus for manipulation. Attention was then placed to the abdomen. The normal length Veress needle was introduced into the abdominal cavity while tenting the abdominal wall. Low pressure was noted confirming appropriate placement. The abdomen was then insufflated to 15mmHg for the remainder of the case. The Veress needle was removed, and an 8 mm port was placed at the umbilical site under direct laparscopic visualization and there was no evidence of injury from the trocar placement. Visualization of the intraabdominal cavity showed normal pelvic anatomy without evidence of adhesions. The port sites for the remainder of the case were then measured out and placed under direct visualization. On the left side, one 8 mm robotic assist port and one 10 mm assist port were placed. On the right side, one 8 mm robotic port was placed. The Klatcher robot was then brought to the operative field in a lateral docking style to the left of the patient and the robot was docked to the ports. All robotic instruments were brought into the pelvis under direct visualization with monopolar scissors in arm #3 and vessel sealer in arm #1. The left IP and uterovarian ligaments were cauterized and cut. The right round ligament was cauterized and cut. Broad ligament was opened and bladder flap created. This was repeated on the left side. The peritoneum of the bilateral broad ligaments was then taken down and monopolar cautery used to skeletonize the uterine arteries bilaterally. During the course of this dissection, the anterior leaf of the broad ligament was also taken down over the anterior aspect of the uterus and cervix to create a bladder flap. Bilateral adnexa were place into specimen bags. the right adnexa was removed through an abdominal incision. The left was held, as it was too large to fit through the abdominal incisions. The bladder was then dissected off the cervix and upper vagina with the monopolar scissors and gentle blunt dissection. The bilateral uterine arteries were then cauterized and divided at the level of the internal cervical os. The large fibroid inside of the right broad ligament was removed with myomectomy and was divided into three to accommodate removal from the vagina. The three smaller fibroids were placed in specimen bags. The monopolar cautery was used to incise the vaginal cuff. The uterus, along with the cervix was removed vaginally. All specimen bags were also removed from the vagina. Cuff was closed in with 0- Stratifix sutures. Excellent hemostasis was noted at this time. A 70 degree cystoscopy was performed which confirmed no suture placement within the bladder, no trauma to the bladder. Good efflux was noted from both ureteric orifices. The robot was undocked from the trocars and brought out of the operative field. The remainder of the ports were removed, and the gas was allowed to escape. All skin incisions were infiltrated with lidocaine and closed with 4-0 Monocryl and dermabond. Hemostasis was noted to be excellent throughout, and final sponge, instrument, and needle count was noted to be correct. The patient was moved back to the preoperative holding area in stable condition having tolerated the procedure well. A physician educational/development assistant was utilized for the entire procedure due to the need for tissue retraction, dissection of vital structures, prevention and management of blood loss, and reduction in overall operative and anesthesia time as is the standard of care.
[2024-09-19] MEDS: ACETAMINOPHEN TAB 500 MG TAB PO SCH (17:38)
[2024-09-19] MEDS: droPERidol 2.5 MG/ML VIAL IVP ONE (17:49)
[2024-09-19] MEDS: IBUPROFEN 800 MG TAB PO SCH (20:08)
[2024-09-19] MEDS: diphenhydrAMINE 50 MG/ML 1 ML VIAL IVP PRN (23:58)
[2024-09-20 05:57] LABS: Basophils # (A) 0.02 10*3/uL (0.00-0.10); Basophils % (A) 0.3 %; HCT 22.9 % (37.2-46.3); HGB 7.6 g/dL (12.0-15.0); Lymphocytes # (A) 1.28 10*3/uL (0.90-5.00); MCHC 33.2 g/dL (32.0-37.0); MCV 87.4 fL (80.0-97.0); Mean Platelet Volume 12.6 fL (9.5-12.2); Monocytes # (A) 0.55 10*3/uL (0.20-1.00); Monocytes % (A) 6.9 %; Neutrophils # (A) 6.13 10*3/uL (1.80-7.70); Neutrophils % (A) 76.5 %; Platelet Count 208 10*3/uL (140-440); RBC 2.62 10*6/uL (4.10-5.20); RDW 13.6 % (11.5-14.5)
--- NOTE | 2024-09-20 08:26 | P.PN ---
Progress Note - Text Progress Note Date: 09/20/24 S: Patient feeling slightly lightheaded with walking this morning. Has some pain that is limiting deep breaths this morning. No chest pain/shortness of breath, fevers/chills, pain/swelling in legs. Catheter just removed. O: VSS, but BPs soft. Hgb down to 7.6, expected with the EBL. Incisions kaleb n/dry/intact. Abdomen soft, appropriately tender. Extremities non-tender, non- edematous. A/P: Ms. Link is a 49 year old POD#1 s/p RYAN, BSO, Dx Cystoscopy - Give Ferrlicit this morning, home on PO iron - Continue to monitor VS - Await spontaneous void - Eat, drink, ambulate - Encouraged IS use Dispo: Anticipate discharge home later this afternoon
[2024-09-20] MEDS: SODIUM FERRIC GLUCONAT-SUCROSE 125 MG in SODIUM CHLORIDE 0.9% 100 ML IVPB ONE (09:20)
--- NOTE | 2024-09-20 11:38 | P.PN ---
Progress Note - Text 09/20/24 612am 49-year-old female status post hysterectomy with spinal Duramorph. Patient seen and evaluated for postop pain control, she has a VAS of 4 with complaints of mild pruritus which should subside. Otherwise doing very well
[2024-09-20] MEDS: ONDANSETRON 4 MG/2 ML VIAL IVP PRN (12:30)
[2024-09-20 12:35] VITALS: RESP 16
[2024-09-20 16:00] VITALS: BP 103/62; PULSE 74; TEMP 98.4
--- NOTE | 2024-09-20 17:47 | P.DS ---
Providers Date of admission: 09/19/2024 Expected date of discharge: 09/20/24 Attending physician: Alea Berkowitz MD Primary care physician: Terrence Hurtado [facility] Course: 49 year old POD#1 s/p ROLH, BSO, Dx Cystoscopy. The case was complicated by many bulky fibroids growing into the bladder and broad ligament which increased overall blood loss. Due to acute blood loss anemia, the patient did drop down to a 7.6 Hgb today. BPs were soft overnight and in the morning and tyler back up to a more normal range for her. She was lightheaded with ambulation in the morning which improved with IV fluids and eating. She did receive IV Ferrlicit prior to discharge. The patient is doing well this morning and had no acute events overnight. She has no complaints this morning. She reports minimal spotting, passing flatus, voiding without difficulty, ambulating, and eating/drinking without nausea or vomiting. She denies chest pain, shortness of breathing, fevers, or chills overnight. She denies pain or swelling in the legs. Postoperative restrictions are reviewed with the patient including pelvic rest for 6 weeks, no lifting heavier than 15 pounds for 6 weeks. The patient is encouraged to call the office if she experiences any heavy bleeding, foul- smelling discharge, breast complaints, or any if she has any other concerns. She will follow up in the office in 2 weeks for postoperative exam. All questions are answered. Patient Condition at Discharge: Good Plan - Discharge Summary Discharge Rx Participant: Yes New Discharge Prescriptions: No Action Metoprolol Succinate [Toprol XL] 50 mg PO QAM Lisinopril-Hctz 20-12.5 mg [Zestoretic 20-12.5] 1 tab PO QAM Escitalopram [Lexapro] 10 mg PO QAM Discharge Medication List Lisinopril-Hctz 20-12.5 mg [Zestoretic 20-12.5] 1 tab PO QAM 06/07/19 [History] Metoprolol Succinate [Toprol XL] 50 mg PO QAM 06/07/19 [History] Escitalopram [Lexapro] 10 mg PO QAM 12/22/23 [History] Follow up Appointment(s)/Referral(s): Alea Berkowitz MD [STAFF PHYSICIAN] - 2 Weeks Patient Instructions/Handouts: Hysterectomy (DC) Activity/Diet/Wound Care/Special Instructions: Postoperative Instructions 1. No heavy lifting or straining (exercising) until after 6 week checkup. 2. Do not resume sexual relations for 6 weeks or longer if uncomfortable. 3. Keep abdominal incision clean and dry: You may wear a dressing if more comfortable. 4. Keep any areas repaired with stitches clean and dry. 5. Call the office, , within the next week to make appointment for your 2 week checkup 6. Report any of the following occurrences to the doctor promptly: a. Heavy, excessive bleeding b. Chills, fever c. Burning or frequency of urination d. Pain or redness around the incisions Discharge Disposition: HOME SELF-CARE
== END 2024-09-20 17:30 | disposition home or self-care (01) ==
LOC: OR 08:07 → 4FBP 13:42 → OR 09-20 17:30
PROVIDERS: ATTEND Obstetrics & Gynecology
DX: C56.3 Malignant neoplasm of bilateral ovaries (principal); D25.1 Intramural leiomyoma of uterus; G89.18 Other acute postprocedural pain; D62 Acute posthemorrhagic anemia; Z90.722 Acquired absence of ovaries, bilateral; Z79.899 Other long term (current) drug therapy; Z90.710 Acquired absence of both cervix and uterus
CPT/HCPCS: 58571; S2900; 81025; 85025; 88309; 88342